=== PATIENT | male | born 1960 | race Caucasian/White ===

== ENCOUNTER 2017-04-05 16:02 | Emergency (ER) | payer SELFPAY ==
[2017-04-05] MEDS ORDERED: Ketorolac Tromethamine 30 MG/ML VIAL ONE ×2 (17:18)
--- NOTE | 2017-04-05 17:22 | RAD ---
EXAM: LEFT ANKLE THREE VIEWS 04/05/17 HISTORY: Injury. Pain. FINDINGS: No fracture. No cortical irregularity or periosteal reaction. Remote medial malleolus avulsive fract ure is suspected. There is medial and lateral soft tissue swelling. Joint spaces appear to be preser ivory. IMPRESSION: Soft tissue swelling without evidence of acute fracture. POS: [facility]
== END 2017-04-05 17:48 | disposition home or self-care (01) ==
LOC: ERS 16:02
DX: S93.402A Sprain of unspecified ligament of left ankle, initial encounter (principal); I10 Essential (primary) hypertension; X50.1XXA Overexertion from prolonged static or awkward postures, initial encounter
CPT/HCPCS: 96372; J1885

== ENCOUNTER 2018-03-05 00:41 | Inpatient (IN) | payer SELFPAY ==
[2018-03-05 01:17] LABS: #Basophils 0.1 thou/uL (0.0-0.2); #Eosinphils 0.1 thou/uL (0.0-0.7); #Lymphocytes 3.3 thou/uL (1.20-3.40); #Monocytes 0.7 thou/uL (0.11-0.59); #Neutrophils 4.3 thou/uL (1.40-6.50); %Basophils 0.9 % (0.0-1.0); %Eosinophils 1.3 % (0.0-10.0); %Lymphocytes 39.1 % (21.0-51.0); %Monocytes 8.3 % (0.0-10.0); %Neutrophils 50.5 % (42.0-75.0); Hemoglobin 19.3 g/dL (14.0-18.0); Mean Corpuscular Hemoglobin 31.6 pg (27.0-31.0); Mean Platelet Volume 7.4 fL (7.4-10.4); Platelet Count 158 thou/uL (130-400); RBC Distribution Width 14.5 % (11.5-14.5); White Blood Cell (WBC) Count 8.4 thou/uL (4.8-10.8)
[2018-03-05 01:35] LABS: ALT (SGPT) 72 U/L (8-55); AST (SGOT) 62 U/L (5-34); Albumin 4.1 g/dL (3.5-5.0); Alkaline Phosphatase 93 U/L (40-150); Anion Gap 18 mmol/L (10-20); BUN (Urea Nitrogen) 7 mg/dL (8.4-25.7); Bilirubin, Total 0.4 mg/dL (0.2-1.2); CK (CPK) 80 U/L (30-200); Calc. Creatinine Clearance 0 mL/min (70-130); Calcium 9.5 mg/dL (7.8-10.44); Carbon Dioxide 23 mmol/L (22-29); Chloride 102 mmol/L (98-107); Estimated GFR-MDRD 81; Globulin 3.7 g/dL (2.4-3.5); Glucose 120 mg/dL (70-105); Lipase 57 U/L (8-78); Protein, Total 7.8 g/dL (6.0-8.3); Sodium 139 mmol/L (136-145)
[2018-03-05 01:37] LABS: Troponin I 0.148 ng/mL (< 0.028)
[2018-03-05] MEDS ORDERED: Nitroglycerin 2% Ointment 1 INCH/1 GM Packet ONE (01:55)
[2018-03-05] MEDS ORDERED: Morphine 4 MG/ML VIAL ONE (01:55)
[2018-03-05] MEDS ORDERED: Heparin 25,000 units/D5W 500 ML ONE (02:06)
[2018-03-05] MEDS ORDERED: Heparin 1,000 UNITS/ML VIAL ONE ×2 (02:06→02:30)
[2018-03-05] MEDS ORDERED: Nitroglycerin 50 MG/250 ML BOT 250 ML ONE (02:06)
[2018-03-05] MEDS ORDERED: Labetalol HCl 100 MG/20 ML VIAL ONE (02:06)
[2018-03-05] MEDS ORDERED: Ondansetron HCl/PF 4 MG/2 ML Vial ONE (02:13)
[2018-03-05 02:18] LABS: INR-International Normal Ratio 1.1; PTT 30.1 SEC (22.9-36.1); Prothrombin Time 13.8 SEC (12.0-14.7)
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
[2018-03-05] MEDS ORDERED: Labetalol HCl 100 MG/20 ML VIAL SLOW IVP PRN (03:37)
[2018-03-05 03:40] VITALS: BMI 34.9
[2018-03-05] MEDS ORDERED: Ondansetron ODT 4 MG TAB PO PRN (04:23)
[2018-03-05] MEDS ORDERED: Nitroglycerin 50 MG/250 ML BOT 250 ML IVPB SCH (04:23)
[2018-03-05] MEDS ORDERED: Lactated Ringer's 1,000 ML IV SCH (04:30)
[2018-03-05] MEDS: Heparin 25,000 units/D5W 500 ML IVPB SCH (05:01)
[2018-03-05 05:24] LABS: Hemoglobin 17.7 g/dL (14.0-18.0); Platelet Count 144 thou/uL (130-400)
[2018-03-05 05:44] LABS: Cardiac Risk 7.5 (Less than 4.5)
[2018-03-05 05:59] LABS: Troponin I 0.694 ng/mL (< 0.028)
--- NOTE | 2018-03-05 06:09 | PDOC.EVN ---
Event Note - Event Note Event Note: Residents notified at 0545 of pt having worsening chest pain despite administration of IV morphine. Pain had resolved to 0/10 prior to transfer to unit. Pt currently rating pain at 6/10 with radiation to jaw. Repeat EKG showed no acute changes. Troponins trending up: 0.148-> 0.694. Notified Dr Alston. Plan for patient to go to medical lab technologist early this AM.
--- NOTE | 2018-03-05 06:35 | PDOC.FM ---
- Subjective Subjective: Patient reports that his chest pain improved initially after the nitro, but about an hour ago got much worse again. It feels like a pressure, substernal pain. He has pain with breathing, but denies SOB. Denies N/V, abdominal pain. - Objective MAR Reviewed: Yes Vital Signs & Weight: Vital Signs (12 hours) Temp 03/05/18 04:00 97.9 F Weight Admit Weight 92 kg Weight 92.2 kg Most Recent Monitor Data Heart Rate from ECG 78 NIBP 159/113 NIBP BP-Mean 121 Respiration from ECG 14 SpO2 95 I&O: 03/03/18 03/04/18 03/05/18 06:59 06:59 06:59 Output Total 400 Balance -400 Result Diagrams: 03/05/18 05:09 03/05/18 01:00 <Unique Echavarria - Last Filed: 03/05/18 06:56> - Objective Vital Signs & Weight: Vital Signs (12 hours) Temp Pulse Resp Pulse Ox 03/05/18 07:31 98.5 F 71 13 94 L 03/05/18 07:00 98.5 F 03/05/18 04:00 97.9 F 03/05/18 03:30 97.9 F 108 H 22 H 95 Weight Admit Weight 92 kg Weight 92.2 kg Most Recent Monitor Data Heart Rate from ECG 76 NIBP 170/86 NIBP BP-Mean 132 Respiration from ECG 14 SpO2 95 I&O: 03/04/18 03/05/18 03/06/18 06:59 06:59 06:59 Intake Total 188.5 Output Total 400 Balance -211.5 Result Diagrams: 03/05/18 05:09 03/05/18 08:19 <Lynsey Gautam - Last Filed: 03/05/18 11:14> Phys Exam - Physical Examination Constitutional: NAD HEENT: moist MMs, sclera anicteric Respiratory: no wheezing, no rales, no rhonchi, clear to auscultation bilateral Cardiovascular: RRR, no significant murmur, no rub Gastrointestinal: soft, non-tender, no distention, positive bowel sounds Musculoskeletal: no edema, pulses present Neurological: non-focal, moves all 4 limbs Psychiatric: normal affect, A&O x 3 Skin: normal turgor, cap refill <2 seconds <Unique Echavarria - Last Filed: 03/05/18 06:56> Dx/Plan (1) NSTEMI (non-ST elevated myocardial infarction) Code(s): I21.4 - NON-ST ELEVATION (NSTEMI) MYOCARDIAL INFARCTION Status: Acute (2) Hypertensive emergency Code(s): I16.1 - HYPERTENSIVE EMERGENCY Status: Acute (3) Polycythemia Code(s): D75.1 - SECONDARY POLYCYTHEMIA Status: Acute (4) GERD (gastroesophageal reflux disease) Code(s): K21.9 - GASTRO-ESOPHAGEAL REFLUX DISEASE WITHOUT ESOPHAGITIS Status: Acute Qualifiers: Esophagitis presence: esophagitis presence not specified Qualified Code(s) : K21.9 - Gastro-esophageal reflux disease without esophagitis (5) HTN (hypertension) Code(s): I10 - ESSENTIAL (PRIMARY) HYPERTENSION Status: Chronic Qualifiers: Hypertension type: essential hypertension Qualified Code(s): I10 - Essential (primary) hypertension (6) Tobacco abuse Code(s): Z72.0 - TOBACCO USE Status: Chronic (7) Marijuana abuse Code(s): F12.10 - CANNABIS ABUSE, UNCOMPLICATED Status: Acute - Plan Plan: NSTEMI Substernal chest pressure radiating to left jaw and diaphoresis relieved with nitro initially. Extensive FH of NM and heart disease. Heart score 8. Initial EKG showed ST depression in lateral leads. s/p labetalol and morphine in ED. Had taken BC powder at home. Troponin 0.148-> 0.694 - Dr. Alston with cardiology on board, plans to take patient to cath now with the new elevation of troponin and worsening chest pain - Continue heparin drip until cath - Continue nitro drip until cath - Continue Morphine PRN - LR @ 125 - Mechanical Engineering Lecturer on smoking cessation - EKG if chest pain returns Hypertensive Emergency Initial BP 226/139, has improved on nitro drip. Currently around 160s/110s. - Continue Nitro drip - Continue to monitor pressures Polycythemia Hgb 19.3->17.7 - EPO and JAK2 - Continue to monitor GERD - IV protonix Marijuana and tobacco abuse - Mechanical Engineering Lecturer on cessation <Unique Echavarria - Last Filed: 03/05/18 06:56> Attending Addendum - Attending Addendum Date/Time: 03/05/18 1111 I personally evaluated the patient and discussed the management with Dr. Echavarria I agree with the History, Examination, Assessment and Plan documented above with any addition or exceptions noted below- Patient returned from cath. Still having some chest pain. Afebrile VSS A/P: 1) NSTEMI- continue nitrates, ASA, statin, morphine. s/p cath- plan for medical management as per cardiology, 2) HTN emergency- continue to titrate BP meds. <Lynsey Gautam - Last Filed: 03/05/18 11:14>
[2018-03-05 07:25] LABS: Magnesium 1.8 mg/dL (1.6-2.6); Phosphorus 3.4 mg/dL (2.3-4.7)
[2018-03-05] MEDS ORDERED: Aspirin 325 MG TAB PO SCH (08:00)
[2018-03-05] MEDS ORDERED: Lidocaine 1% (PF) 30 ML VIAL ONE (08:18)
[2018-03-05] MEDS: Pantoprazole 40 MG VIAL IVP SCH (08:19)
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
[2018-03-05] MEDS ORDERED: Fentanyl 100 MCG/2 ML VIAL ONE (08:48)
[2018-03-05] MEDS ORDERED: Midazolam HCl 2 mg/2 ml Vial ONE (08:48)
[2018-03-05 08:58] LABS: Troponin I 2.929 ng/mL (< 0.028)
[2018-03-05] MEDS ORDERED: hydrALAZINE 20 MG/ML VIAL ONE (08:59)
[2018-03-05 09:00] LABS: Anion Gap 11 mmol/L (10-20); BUN (Urea Nitrogen) 7 mg/dL (8.4-25.7); Calc. Creatinine Clearance 128 mL/min (70-130); Calcium 8.8 mg/dL (7.8-10.44); Carbon Dioxide 22 mmol/L (22-29); Chloride 106 mmol/L (98-107); Estimated GFR-MDRD Greater than 90; Glucose 130 mg/dL (70-105); Potassium 3.6 mmol/L (3.5-5.1); Sodium 135 mmol/L (136-145)
[2018-03-05] MEDS ORDERED: Enoxaparin Sodium 40 MG/0.4 ML SYRINGE SC SCH (09:00)
[2018-03-05] MEDS ORDERED: Heparin 10,000 UNITS/1 ML VIAL ONE (09:18)
[2018-03-05] MEDS ORDERED: Clopidogrel Bisulfate 300 MG TAB PO SCH (09:45)
[2018-03-05] MEDS ORDERED: Sodium Chloride 0.9% 1,000 ML IV SCH (09:45)
--- NOTE | 2018-03-05 11:02 | RAD ---
CHEST ONE VIEW: History: Chest pain. Comparison: Chest radiograph 2013. FINDINGS: Lungs are free of focal airspace consolidation, pneumothorax, or effusion. Cardiac silhouette and med iastinal contours are within normal limits. No acute osseous abnormality. IMPRESSION: No acute intrathoracic abnormality. POS: [facility]
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
[2018-03-05 12:43] LABS: CKMB 114.2 ng/mL (0-6.6)
[2018-03-05] MEDS ORDERED: Iopamidol 370 76% 100 ML VIAL ONE (13:23)
[2018-03-05] MEDS: Heparin 10,000 UNITS/ 10 ML VIAL SLOW IVP SCH ×2 (14:03→21:50)
[2018-03-05 16:17] LABS: CKMB 107.4 ng/mL (0-6.6); Critical Call CKMBM RESULT DECREASING
--- NOTE | 2018-03-05 17:08 | EKG ---
Test Reason : Blood Pressure : / mmHG Vent. Rate : 080 BPM Atrial Rate : 080 BPM P-R Int : 168 ms QRS Dur : 086 ms QT Int : 420 ms P-R-T Axes : 032 007 053 degrees QTc Int : 484 ms Normal sinus rhythm Prolonged QT Abnormal ECG Confirmed by KIKE TORRES ([id number]) on 03/05/2018 5:07:52 PM Referred By: Confirmed By:KIKE TORRES
--- NOTE | 2018-03-05 17:10 | EKG ---
Test Reason : POST CATH Blood Pressure : / mmHG Vent. Rate : 082 BPM Atrial Rate : 082 BPM P-R Int : 158 ms QRS Dur : 084 ms QT Int : 424 ms P-R-T Axes : 059 024 054 degrees QTc Int : 495 ms Normal sinus rhythm Nonspecific T wave abnormality Prolonged QT Abnormal ECG Confirmed by KIKE TORRES ([id number]) on 03/05/2018 5:10:37 PM Referred By: HERNAN Confirmed By:KIKE TORRES
[2018-03-05] MEDS ORDERED: Carvedilol 6.25 MG TAB PO SCH (19:30)
[2018-03-05] MEDS ORDERED: Lisinopril 10 MG TAB PO SCH (19:30)
[2018-03-05] MEDS: Atorvastatin Calcium 40 MG TAB PO SCH (20:20)
[2018-03-05] MEDS ORDERED: Carvedilol 3.125 MG TAB PO SCH (21:00)
[2018-03-06 03:54] LABS: #Eosinphils 0.1 thou/uL (0.0-0.7); #Lymphocytes 2.3 thou/uL (1.20-3.40); #Monocytes 0.7 thou/uL (0.11-0.59); #Neutrophils 6.3 thou/uL (1.40-6.50); %Basophils 0.5 % (0.0-1.0); %Eosinophils 1.2 % (0.0-10.0); %Monocytes 7.6 % (0.0-10.0); %Neutrophils 66.6 % (42.0-75.0); Hemoglobin 16.1 g/dL (14.0-18.0); Mean Corpuscular HGB CONC 35.8 g/dL (32.0-36.0); Mean Corpuscular Hemoglobin 33.4 pg (27.0-31.0); Mean Corpuscular Volume 93.4 fL (78.0-98.0); Mean Platelet Volume 7.6 fL (7.4-10.4); Platelet Count 132 thou/uL (130-400); RBC Distribution Width 14.4 % (11.5-14.5); Red Blood Cell (RBC) Count 4.82 mill/uL (4.70-6.10); White Blood Cell (WBC) Count 9.4 thou/uL (4.8-10.8)
[2018-03-06 04:08] LABS: ALT (SGPT) 53 U/L (8-55); AST (SGOT) 93 U/L (5-34); Albumin 3.2 g/dL (3.5-5.0); Alkaline Phosphatase 65 U/L (40-150); Anion Gap 12 mmol/L (10-20); BUN (Urea Nitrogen) 4 mg/dL (8.4-25.7); Bilirubin, Total 1.1 mg/dL (0.2-1.2); Calc. Creatinine Clearance 149 mL/min (70-130); Calcium 8.5 mg/dL (7.8-10.44); Carbon Dioxide 22 mmol/L (22-29); Chloride 107 mmol/L (98-107); Estimated GFR-MDRD Greater than 90; Glucose 115 mg/dL (70-105); Potassium 3.6 mmol/L (3.5-5.1); Protein, Total 6.2 g/dL (6.0-8.3); Sodium 137 mmol/L (136-145)
[2018-03-06] MEDS: Heparin 10,000 UNITS/ 10 ML VIAL SLOW IVP SCH (04:58)
--- NOTE | 2018-03-06 06:24 | PDOC.FM ---
- Subjective Subjective: Patient reports that he had some chest pain overnight, but got morphine and that seemed to help some. His chest pain is much improved this AM. He denies any N/V, SOB. - Objective MAR Reviewed: Yes Vital Signs & Weight: Vital Signs (12 hours) Temp Pulse Resp BP Pulse Ox 03/05/18 20:20 160/99 H 03/05/18 20:19 160/99 H 03/05/18 20:00 98.5 F 82 21 H 93 L Weight Admit Weight 92 kg Weight 92.2 kg Most Recent Monitor Data Heart Rate from ECG 101 NIBP 145/105 NIBP BP-Mean 114 Respiration from ECG 12 SpO2 94 I&O: 03/04/18 03/05/18 03/06/18 06:59 06:59 06:59 Intake Total 188.5 2817 Output Total 400 1025 Balance -211.5 1792 Result Diagrams: 03/06/18 03:39 03/06/18 03:39 <nUique Echavarria - Last Filed: 03/06/18 06:23> - Objective Vital Signs & Weight: Vital Signs (12 hours) Temp Pulse Resp BP Pulse Ox 03/06/18 08:42 93 03/06/18 08:40 155/102 H 03/06/18 08:00 98.7 F 93 17 93 L Weight Admit Weight 92 kg Weight 92.2 kg Most Recent Monitor Data Heart Rate from ECG 96 NIBP 155/102 NIBP BP-Mean 122 Respiration from ECG 24 SpO2 93 I&O: 03/05/18 03/06/18 03/07/18 06:59 06:59 06:59 Intake Total 188.5 2817 Output Total 400 1025 200 Balance -211.5 1792 -200 Result Diagrams: 03/06/18 03:39 03/06/18 03:39 <Lynsey Gautam - Last Filed: 03/06/18 10:42> Phys Exam - Physical Examination Constitutional: NAD HEENT: moist MMs, sclera anicteric Respiratory: no wheezing, no rales, no rhonchi, clear to auscultation bilateral Cardiovascular: RRR, no significant murmur, no rub Gastrointestinal: soft, non-tender, no distention, positive bowel sounds Musculoskeletal: no edema, pulses present Neurological: non-focal, moves all 4 limbs Psychiatric: normal affect, A&O x 3 Skin: normal turgor, cap refill <2 seconds <Unique Echavarria - Last Filed: 03/06/18 06:23> Dx/Plan (1) NSTEMI (non-ST elevated myocardial infarction) Code(s): I21.4 - NON-ST ELEVATION (NSTEMI) MYOCARDIAL INFARCTION Status: Acute (2) Hypertensive emergency Code(s): I16.1 - HYPERTENSIVE EMERGENCY Status: Acute (3) Polycythemia Code(s): D75.1 - SECONDARY POLYCYTHEMIA Status: Acute (4) GERD (gastroesophageal reflux disease) Code(s): K21.9 - GASTRO-ESOPHAGEAL REFLUX DISEASE WITHOUT ESOPHAGITIS Status: Acute (5) HTN (hypertension) Code(s): I10 - ESSENTIAL (PRIMARY) HYPERTENSION Status: Chronic (6) Tobacco abuse Code(s): Z72.0 - TOBACCO USE Status: Chronic (7) Marijuana abuse Code(s): F12.10 - CANNABIS ABUSE, UNCOMPLICATED Status: Acute - Plan Plan: NSTEMI 2/2 CAD Substernal chest pressure radiating to left jaw and diaphoresis relieved with nitro initially. Extensive FH of MN and heart disease. Heart score 8. Initial EKG showed ST depression in lateral leads. s/p labetalol and morphine in ED. Had taken BC powder at home. Troponin 0.148-> 0.694->2.929. Cardiac cath showed 90% lesion in LCx, 60% LAD, no stents placed. - Dr. Alston with cardiology on board, appreciate recs - Continue heparin drip until 48 hours after cath - Nitro gtt has been d/c'd - Continue Morphine PRN - Adult Education Instructor on smoking cessation - EKG if chest pain returns - Plavix, aspirin, atorvastatin, coreg, lisinopril started yesterday Hypertensive Emergency Initial BP 226/139, improved on nitro drip. Currently around 140s-170s/90s- 100s. - Continue lisinopril, coreg - Continue to monitor pressures Polycythemia Hgb 19.3->17.7->16.1 after fluids - EPO and JAK2 - Continue to monitor GERD - IV protonix Marijuana, tobacco, EtOH abuse - Adult Education Instructor on cessation - ASE protocol <Unique Echavarria - Last Filed: 03/06/18 06:23> Attending Addendum - Attending Addendum Date/Time: 03/06/18 1040 I personally evaluated the patient and discussed the management with Dr. Echavarria I agree with the History, Examination, Assessment and Plan documented above with any addition or exceptions noted below- Patient reports that no chest pain since last night. Walked in halls with PT with no pain. Afebrile VSS. A/P: 1) NSTEMI - appreciate cardiology assistance; continue heparin. Started on beta juan j, Jonah, statin and plavix. 2) Hypertensive emergency- resolved. BP much improved. Continue to monitor and adjust meds as needed. <Lynsey Gautam - Last Filed: 03/06/18 10:42>
[2018-03-06] MEDS ORDERED: Lidocaine 2% Viscous Solution 10 ML, Aluminum & Magnesium Hydroxide 30 ML SSW SCH (06:45)
--- NOTE | 2018-03-06 08:33 | PRG ---
DATE OF SERVICE: 03/06/2018 This morning he is awake, alert and responsive. PHYSICAL EXAMINATION: VITAL SIGNS: His pulse is 85, blood pressure 150/82, sats 90%, respirations 18. GENERAL: In no distress. CHEST: Chest reveals decreased breath sounds, no wheezing. CARDIAC: Normal S1, S2, no gallops. ABDOMEN: Soft, no masses. His electrolytes are normal. White count is unremarkable. IMPRESSION: 1. Status post myocardial infarction. 2. Tobacco abuse. 3. Probably sleep apnea. PLAN: Pulmonary lopez stable enough to be transferred to the telemetry unit. He would benefit from a n outpatient sleep study.
[2018-03-06] MEDS: Carvedilol 6.25 MG TAB PO SCH ×2 (08:40→17:29)
[2018-03-06] MEDS: Clopidogrel Bisulfate 75 MG TAB PO SCH (08:42)
[2018-03-06] MEDS: Lisinopril 2.5 MG TAB PO SCH (08:42)
[2018-03-06] MEDS: Pantoprazole 40 MG VIAL IVP SCH (08:42)
[2018-03-06] MEDS: Heparin 25,000 units/D5W 500 ML IVPB SCH (08:51)
--- NOTE | 2018-03-06 12:17 | EKG ---
Test Reason : Blood Pressure : / mmHG Vent. Rate : 089 BPM Atrial Rate : 089 BPM P-R Int : 166 ms QRS Dur : 080 ms QT Int : 392 ms P-R-T Axes : 042 027 035 degrees QTc Int : 476 ms Normal sinus rhythm Normal ECG Confirmed by KIKE TORRES ([id number]) on 03/06/2018 12:16:45 PM Referred By: HERNAN Confirmed By:KIKE TORRES
--- NOTE | 2018-03-06 19:59 | PDOC.CTH ---
Cardiology Progress Note - Subjective He is doing well. No more chest pain or reflux. His BP is better controlled. - Objective Vital Signs Temp Pulse Pulse Pulse Resp BP BP 03/06/18 17:29 136/82 03/06/18 15:35 98.1 F 90 18 03/06/18 12:00 98.9 F 03/06/18 09:37 85 03/06/18 08:54 89 93 154/99 H 03/06/18 08:42 93 03/06/18 08:40 155/102 H 03/06/18 08:00 98.7 F 93 17 BP Pulse Ox Pulse Ox Pulse Ox 03/06/18 17:29 03/06/18 15:35 95 03/06/18 12:00 03/06/18 09:37 03/06/18 08:54 112/84 95 92 L 03/06/18 08:42 03/06/18 08:40 03/06/18 08:00 93 L Admit Weight 202 lb 13.204 oz Weight 203 lb 4.259 oz 03/05/18 03/06/18 03/07/18 06:59 06:59 06:59 Intake Total 188.5 2817 749 Output Total 400 1025 700 Balance -211.5 1792 49 - Physical Examination General/Neuro: alert & oriented x3, NAD Neck: no JVD present Lungs: CTA, unlabored respirations Heart: RRR Abdomen: NT/ND Extremities: other: (no edema) - Telemetry Telemetry Rhythm: NSR - Labs Result Diagrams: 03/06/18 03:39 03/06/18 03:39 Troponin/CKMB CK-MB (CK-2) 107.4 ng/mL (0-6.6) H* 03/05/18 15:37 Troponin I 2.929 ng/mL (< 0.028) H* 03/05/18 08:19 - Assessment/Plan 1. NSTEMI 2. HTN emergency 3. Non compliance 4. CAD 5. HLP 6. Tobacco use PLAN: - Continue Heparin drip for total of 48 hrs., - Continue ASA/Plavix/Statin/BB/ACEI. - May transfer to floor.
[2018-03-06] MEDS: Atorvastatin Calcium 40 MG TAB PO SCH (20:33)
[2018-03-07] MEDS: Heparin 25,000 units/D5W 500 ML IVPB SCH (01:55)
[2018-03-07 06:03] LABS: Platelet Count 129 thou/uL (130-400)
[2018-03-07 06:04] LABS: #Eosinphils 0.1 thou/uL (0.0-0.7); #Lymphocytes 2.7 thou/uL (1.20-3.40); #Monocytes 0.8 thou/uL (0.11-0.59); #Neutrophils 4.8 thou/uL (1.40-6.50); %Basophils 0.3 % (0.0-1.0); %Eosinophils 1.3 % (0.0-10.0); %Lymphocytes 32.5 % (21.0-51.0); %Monocytes 9.4 % (0.0-10.0); %Neutrophils 56.4 % (42.0-75.0); Hemoglobin 14.8 g/dL (14.0-18.0); Mean Corpuscular HGB CONC 33.9 g/dL (32.0-36.0); Mean Corpuscular Hemoglobin 32.3 pg (27.0-31.0); Mean Corpuscular Volume 95.2 fL (78.0-98.0); Mean Platelet Volume 8.2 fL (7.4-10.4); Platelet Count 125 thou/uL (130-400); RBC Distribution Width 14.2 % (11.5-14.5); White Blood Cell (WBC) Count 8.4 thou/uL (4.8-10.8)
--- NOTE | 2018-03-07 06:06 | PDOC.FM ---
- Subjective Subjective: This morning patient states he has no chest pain. He states maybe mild tingling substernal but no pain. Has been ambulating without any difficulty. Eating and drinking without issues. Denies sob or leg pain. - Objective Vital Signs & Weight: Vital Signs (12 hours) Temp Pulse Resp BP Pulse Ox 03/07/18 03:13 99.1 F 83 14 140/85 92 L 03/06/18 19:27 98.1 F 88 12 126/74 94 L Weight Admit Weight 92 kg Weight 90.22 kg Most Recent Monitor Data Heart Rate from ECG 92 NIBP 126/87 NIBP BP-Mean 109 Respiration from ECG 22 SpO2 91 I&O: 03/05/18 03/06/18 03/07/18 06:59 06:59 06:59 Intake Total 188.5 2817 1259 Output Total 400 1025 1250 Balance -211.5 1792 9 Result Diagrams: 03/07/18 04:22 03/07/18 04:22 <Scooby Sam - Last Filed: 03/07/18 07:53> - Objective Vital Signs & Weight: Vital Signs (12 hours) Temp Pulse Resp BP BP Pulse Ox 03/07/18 17:45 151/71 H 03/07/18 16:50 99.0 F 91 16 151/71 H 95 03/07/18 11:30 96.9 F L 81 18 154/81 H 95 Weight Admit Weight 92 kg Weight 90.22 kg Most Recent Monitor Data Heart Rate from ECG 92 NIBP 126/87 NIBP BP-Mean 109 Respiration from ECG 22 SpO2 91 I&O: 03/06/18 03/07/18 03/08/18 06:59 06:59 06:59 Intake Total 2817 1259 Output Total 1025 1250 Balance 1792 9 Result Diagrams: 03/07/18 07:20 03/07/18 04:22 <Rachael Mujica - Last Filed: 03/07/18 20:52> Phys Exam - Physical Examination Constitutional: NAD HEENT: PERRLA, moist MMs Neck: no nodes Respiratory: no wheezing, clear to auscultation bilateral Cardiovascular: RRR, no significant murmur Gastrointestinal: soft, non-tender, no distention, positive bowel sounds Musculoskeletal: no edema, pulses present Neurological: non-focal, moves all 4 limbs Skin: no rash, cap refill <2 seconds <Scooby Sam - Last Filed: 03/07/18 07:53> Dx/Plan (1) Hypertensive urgency Code(s): I16.0 - HYPERTENSIVE URGENCY Status: Acute (2) NSTEMI (non-ST elevated myocardial infarction) Code(s): I21.4 - NON-ST ELEVATION (NSTEMI) MYOCARDIAL INFARCTION Status: Acute (3) Polycythemia Code(s): D75.1 - SECONDARY POLYCYTHEMIA Status: Acute (4) Unstable angina Status: Acute (5) HTN (hypertension) Code(s): I10 - ESSENTIAL (PRIMARY) HYPERTENSION Status: Chronic Qualifiers: Hypertension type: essential hypertension Qualified Code(s): I10 - Essential (primary) hypertension - Plan Plan: NSTEMI 2/2 CAD Substernal chest pressure radiating to left jaw and diaphoresis relieved with nitro initially. Extensive FH of [place] and heart disease. Heart score 8. Initial EKG showed ST depression in lateral leads. s/p labetalol and morphine in ED. Had taken BC powder at home. . Cardiac cath showed 90% lesion in LCx, 60% LAD, no stents placed. - Troponin 0.148-> 0.694->2.929-> 14 - Cardiology consulted, appreciate recs - Heparin d/c'd after 48hours bc started on 03/05 at 0400 per MAR - Heparin restarted after speaking with Dr. Alston regarding trop this AM - Nitro gtt has been d/c'd - Continue Morphine PRN - Tube Inspector on smoking cessation - EKG if chest pain returns - Plavix, aspirin, atorvastatin, coreg, lisinopril started yesterday Hypertensive Emergency Initial BP 226/139, improved on nitro drip. WNL overnight - Continue lisinopril, coreg - Continue to monitor pressures Polycythemia Hgb 19.3->17.7->16.1-> 15 - EPO and JAK2 - Continue to monitor GERD - IV protonix Marijuana, tobacco, EtOH abuse - Tube Inspector on cessation - ASE protocol <Scooby Sam - Last Filed: 03/07/18 07:53> Attending Addendum - Attending Addendum Date/Time: 03/07/182049 I personally evaluated the patient at 1135 and discussed the management with Dr. Sam. I agree with the History, Examination, Assessment and Plan documented above with any addition or exceptions noted below. NSTEMI- s/p cath and non-stentable lesion. On heparin gtt- appreciate cards recs. R groin hematoma- patient began complaining of groin pain and bruising this am. Will discuss with cards for further eval. HTN- bp stable. discharge planning per cardiology. <Rachael Mujica - Last Filed: 03/07/18 20:52>
[2018-03-07 06:18] LABS: Anion Gap 11 mmol/L (10-20); BUN (Urea Nitrogen) 7 mg/dL (8.4-25.7); Calc. Creatinine Clearance 144 mL/min (70-130); Calcium 8.7 mg/dL (7.8-10.44); Carbon Dioxide 22 mmol/L (22-29); Chloride 106 mmol/L (98-107); Estimated GFR-MDRD Greater than 90; Glucose 89 mg/dL (70-105); Potassium 3.5 mmol/L (3.5-5.1); Sodium 135 mmol/L (136-145)
[2018-03-07 06:51] LABS: Troponin I 14.924 ng/mL (< 0.028)
[2018-03-07] MEDS ORDERED: Heparin 25,000 units/D5W 500 ML IVPB SCH (07:15)
[2018-03-07] MEDS ORDERED: Heparin 10,000 UNITS/ 10 ML VIAL SLOW IVP SCH (07:15)
[2018-03-07 07:57] LABS: Hemoglobin 15.5 g/dL (14.0-18.0); Platelet Count 140 thou/uL (130-400)
[2018-03-07] MEDS: Lisinopril 2.5 MG TAB PO SCH (08:23)
[2018-03-07] MEDS: Pantoprazole 40 MG VIAL IVP SCH (08:23)
[2018-03-07] MEDS: Carvedilol 6.25 MG TAB PO SCH ×2 (08:24→17:45)
[2018-03-07] MEDS: Clopidogrel Bisulfate 75 MG TAB PO SCH (08:24)
--- NOTE | 2018-03-07 16:10 | ULT ---
ULTRASOUND DOPPLER DUPLEX RIGHT GROIN: 03/07/18 HISTORY: 57-year-old male status post cardiac catheterization presents with right groin mass and pain. Rule ou t pseudoaneurysm. TECHNIQUE: Rodriguez scale, color flow and spectral analysis, of the right groin. FINDINGS: There is an approximately 2.5 x 2 x 3 cm hematoma in the right groin, anterior to the right common fe moral artery. A small proximal portion of this hematoma cavity has pulsatile blood flow, indicating t hat it is a pseudoaneurysm, although the neck of the pseudoaneurysm is difficult to visualize. There is normal arterial pulsatile waveform in the right common femoral artery. IMPRESSION: Positive for pseudoaneurysm in the right groin. The majority of the volume of the pseudoaneurysm is t hrombosed (hematoma), but there is a small patent component. POS: LAURITA
--- NOTE | 2018-03-07 17:43 | ULT ---
ULTRASOUND RIGHT GROIN DOPPLER DUPLEX: 03/07/18 at 5:27 p.m. HISTORY: 57-year-old male with right groin pseudoaneurysm. Status post compression. TECHNIQUE: Rodriguez scale and color flow analysis of right pseudoaneurysm. FINDINGS: The first image, prior to application of compression, demonstrates the hematoma in the right groin, w ith a small region of blood flow representing small patent pseudoaneurysm. The next four images obtai carrie after compression, demonstrate no residual blood flow. IMPRESSION: Apparently successful occlusion of the pseudoaneurysm in the right groin. POS: [place]
--- NOTE | 2018-03-07 18:23 | PDOC.CTH ---
Cardiology Progress Note - Subjective He denies any chest pain, tightness, pressure, SOB or heartburn. His only complaint is right groin pain from his incision site. - Objective Vital Signs Temp Pulse Resp BP BP Pulse Ox 03/07/18 17:45 151/71 H 03/07/18 16:50 99.0 F 91 16 151/71 H 95 03/07/18 11:30 96.9 F L 81 18 154/81 H 95 03/07/18 08:24 165/95 H 03/07/18 08:23 83 03/07/18 08:20 98.3 F 84 16 165/95 H 95 Admit Weight 202 lb 13.204 oz Weight 198 lb 14.4 oz 03/06/18 03/07/18 03/08/18 06:59 06:59 06:59 Intake Total 2817 1259 Output Total 1025 1250 Balance 1792 9 - Physical Examination General/Neuro: alert & oriented x3, NAD Neck: no JVD present Lungs: CTA, unlabored respirations Heart: RRR Abdomen: NT/ND Extremities: other: (no edema. Roght groin with soft bruit and small palpable pulsatile mass.) - Telemetry Telemetry Rhythm: NSR - Labs Result Diagrams: 03/07/18 07:20 03/07/18 04:22 Troponin/CKMB CK-MB (CK-2) 107.4 ng/mL (0-6.6) H* 03/05/18 15:37 Troponin I 14.924 ng/mL (< 0.028) H* 03/07/18 06:00 - Assessment/Plan 1. NSTEMI 2. HTN emergency 3. Non compliance 4. CAD 5. HLP 6. Tobacco use 7. Pseudoaneurysm. PLAN: - Continue ASA/Plavix/Statin/BB/ACEI. - US of the groin confirmed right groin pseudoaneurysm. Resolved with US guided pressure. - Continue other meds. - Home tomorrow if stable.
--- NOTE | 2018-03-07 19:58 | EKG ---
Test Reason : CP Blood Pressure : / mmHG Vent. Rate : 087 BPM Atrial Rate : 087 BPM P-R Int : 162 ms QRS Dur : 078 ms QT Int : 388 ms P-R-T Axes : 036 021 044 degrees QTc Int : 466 ms Normal sinus rhythm Nonspecific ST abnormality Abnormal ECG No changes Confirmed by KATHARINA SEVILLA ([id number]), news video editor JAKOB HALL ([id number]) on 03/07/2018 7:58:36 PM Referred By: Confirmed By:KATHARINA SEVILLA
--- NOTE | 2018-03-07 19:59 | EKG ---
Test Reason : Blood Pressure : / mmHG Vent. Rate : 081 BPM Atrial Rate : 081 BPM P-R Int : 166 ms QRS Dur : 086 ms QT Int : 414 ms P-R-T Axes : 017 012 032 degrees QTc Int : 480 ms Normal sinus rhythm Prolonged QT Abnormal ECG No changes Confirmed by KATHARINA SEVILLA ([id number]), metropolitan editor JAKOB HALL ([id number]) on 03/07/2018 7:59:00 PM Referred By: Confirmed By:KATHARINA SEVILLA
--- NOTE | 2018-03-07 19:59 | EKG ---
Test Reason : Blood Pressure : / mmHG Vent. Rate : 083 BPM Atrial Rate : 083 BPM P-R Int : 156 ms QRS Dur : 088 ms QT Int : 388 ms P-R-T Axes : 034 020 040 degrees QTc Int : 455 ms Normal sinus rhythm Nonspecific ST abnormality Peaked T V3 Abnormal ECG Confirmed by KATHARINA SEVILLA ([id number]), food editor JAKOB HALL ([id number]) on 03/07/2018 7:58:51 PM Referred By: Confirmed By:KATHARINA SEVILLA
[2018-03-07] MEDS: Atorvastatin Calcium 40 MG TAB PO SCH (21:05)
--- NOTE | 2018-03-07 22:44 | PRG ---
DATE OF SERVICE: 03/07/2018 SUBJECTIVE: Jeancarlos Avila is in no distress. He has no complaints. OBJECTIVE: VITAL SIGNS: He is afebrile, blood pressure 161/71, heart rate 16, oximetry is 95 on room air. LUNGS: Clear. He has no wheezes. HEART: Regular rhythm. ABDOMEN: Soft. LABORATORY DATA: He had an abdomen and pelvis ultrasound done today which showed a pseudoaneurysm in his right groin. He has been followed by Cardiology. Hemoglobin stable at 15.5 grams. His renal function is stable at 0.73 creatinine. IMPRESSION: 1. Status post myocardial infarction. 2. Pseudoaneurysm in his right groin. 3. Tobacco abuse. 4. Probable sleep apnea. PLAN: Continue care per Cardiology's recommendations.
[2018-03-08 05:18] LABS: #Basophils 0.1 thou/uL (0.0-0.2); #Eosinphils 0.1 thou/uL (0.0-0.7); #Lymphocytes 2.3 thou/uL (1.20-3.40); #Monocytes 0.7 thou/uL (0.11-0.59); #Neutrophils 4.8 thou/uL (1.40-6.50); %Basophils 0.7 % (0.0-1.0); %Eosinophils 1.8 % (0.0-10.0); %Monocytes 8.4 % (0.0-10.0); %Neutrophils 60.2 % (42.0-75.0); Hemoglobin 15.1 g/dL (14.0-18.0); Mean Corpuscular HGB CONC 33.4 g/dL (32.0-36.0); Mean Corpuscular Hemoglobin 31.4 pg (27.0-31.0); Mean Corpuscular Volume 94.2 fL (78.0-98.0); Mean Platelet Volume 7.9 fL (7.4-10.4); Platelet Count 144 thou/uL (130-400); RBC Distribution Width 14.1 % (11.5-14.5); White Blood Cell (WBC) Count 8.1 thou/uL (4.8-10.8)
[2018-03-08 05:34] LABS: Anion Gap 11 mmol/L (10-20); BUN (Urea Nitrogen) 10 mg/dL (8.4-25.7); Calc. Creatinine Clearance 150 mL/min (70-130); Calcium 8.6 mg/dL (7.8-10.44); Carbon Dioxide 22 mmol/L (22-29); Chloride 106 mmol/L (98-107); Estimated GFR-MDRD Greater than 90; Glucose 87 mg/dL (70-105); Potassium 3.7 mmol/L (3.5-5.1); Sodium 135 mmol/L (136-145)
--- NOTE | 2018-03-08 05:38 | PDOC.FM ---
- Subjective Subjective: Patient states he is feeling well and ready to go home. Knot in groin is soft and feels much better. Has been ambulating the hallway without pain to chest or groin. No N/V/D, SOB, or leg pain. - Objective MAR Reviewed: Yes Vital Signs & Weight: Vital Signs (12 hours) Temp Pulse Resp BP BP BP Pulse Ox 03/08/18 04:00 98.6 F 77 16 142/86 H 93 L 03/08/18 00:00 126/70 03/07/18 20:00 98.6 F 82 18 175/97 H 94 L 03/07/18 17:45 151/71 H Weight Admit Weight 92 kg Weight 90.22 kg Most Recent Monitor Data Heart Rate from ECG 92 NIBP 126/87 NIBP BP-Mean 109 Respiration from ECG 22 SpO2 91 I&O: 03/06/18 03/07/18 03/08/18 06:59 06:59 06:59 Intake Total 2817 1259 Output Total 1025 1250 Balance 1792 9 Result Diagrams: 03/08/18 04:31 03/08/18 04:31 <Scooby Sam - Last Filed: 03/08/18 07:12> - Objective Vital Signs & Weight: Vital Signs (12 hours) Temp Pulse Resp BP BP BP Pulse Ox 03/08/18 09:00 151/71 H 03/08/18 07:40 98.3 F 77 19 174/92 H 97 03/08/18 07:35 98.3 F 77 19 96 03/08/18 04:00 98.6 F 77 16 142/86 H 93 L 03/08/18 00:00 126/70 Weight Admit Weight 92 kg Weight 86.5 kg Most Recent Monitor Data Heart Rate from ECG 92 NIBP 126/87 NIBP BP-Mean 109 Respiration from ECG 22 SpO2 91 I&O: 03/07/18 03/08/18 03/09/18 06:59 06:59 06:59 Intake Total 1259 300 Output Total 1250 200 Balance 9 100 Result Diagrams: 03/08/18 04:31 03/08/18 04:31 <Rachael Mujica - Last Filed: 03/08/18 11:26> Phys Exam - Physical Examination Constitutional: NAD HEENT: PERRLA, moist MMs Neck: no nodes Respiratory: no wheezing Cardiovascular: RRR, no significant murmur Gastrointestinal: soft, non-tender, no distention, positive bowel sounds Musculoskeletal: no edema, pulses present bruising to rt groin, soft today, no induration Neurological: non-focal, moves all 4 limbs Psychiatric: normal affect Skin: no rash, cap refill <2 seconds <Scooby Sam - Last Filed: 03/08/18 07:12> Dx/Plan (1) Hypertensive urgency Code(s): I16.0 - HYPERTENSIVE URGENCY Status: Acute (2) NSTEMI (non-ST elevated myocardial infarction) Code(s): I21.4 - NON-ST ELEVATION (NSTEMI) MYOCARDIAL INFARCTION Status: Acute (3) Polycythemia Code(s): D75.1 - SECONDARY POLYCYTHEMIA Status: Acute (4) Unstable angina Status: Acute (5) HTN (hypertension) Code(s): I10 - ESSENTIAL (PRIMARY) HYPERTENSION Status: Chronic Qualifiers: Hypertension type: essential hypertension Qualified Code(s): I10 - Essential (primary) hypertension - Plan Plan: NSTEMI 2/2 CAD Substernal chest pressure radiating to left jaw and diaphoresis relieved with nitro initially. Extensive FH of [place] and heart disease. Heart score 8. Initial EKG showed ST depression in lateral leads. s/p labetalol and morphine in ED. Had taken BC powder at home. . Cardiac cath showed 90% lesion in LCx, 60% LAD, no stents placed. - Troponin 0.148-> 0.694->2.929-> 14 - Cardiology consulted, appreciate recs - s/p 72 hrs of heparin - Continue Morphine PRN - Counseled on smoking cessation - EKG if chest pain returns - Plavix, aspirin, atorvastatin, coreg, lisinopril started yesterday Hypertensive Emergency Initial BP 226/139. Mildly elevated to the 140s-160s systolic overnight - Continue lisinopril, coreg - Continue to monitor pressures Polycythemia Hgb 19.3->17.7->16.1-> 15 - EPO and JAK2 ordered on admission not resulted - will f/u on these results GERD - IV protonix Marijuana, tobacco, EtOH abuse - Donor Services Manager on cessation - [facility] protocol Dispo: d/c today w/ f/u at [facility] this week <Scooby Sam - Last Filed: 03/08/18 07:12> Attending Addendum - Attending Addendum Date/Time: 03/08/18 [id number] I personally evaluated the patient at 11 am and discussed the management with Dr. Sam. I agree with the History, Examination, Assessment and Plan documented above with any addition or exceptions noted below. NSTEMI- non-stentable lesion but CAD- medical management with asa/plavix/beta juan j/Jonah Inh/statin. Stable for d/c home. <Rachael Mujica - Last Filed: 03/08/18 11:26>
[2018-03-08 07:44] VITALS: TEMP 98.3
[2018-03-08] MEDS: Lisinopril 2.5 MG TAB PO SCH (08:59)
[2018-03-08] MEDS: Clopidogrel Bisulfate 75 MG TAB PO SCH (08:59)
[2018-03-08] MEDS: Carvedilol 6.25 MG TAB PO SCH (09:00)
[2018-03-08] MEDS: Pantoprazole 40 MG VIAL IVP SCH (09:41)
[2018-03-08 11:36] VITALS: BP 167/91
--- NOTE | 2018-03-08 15:00 | PRG ---
DATE OF SERVICE: 03/08/2018 He is having no complaints today. He was asking if his IV could be pulled out. It was actually almo st out, so I pulled it out, intact. OBJCTIVE: LUNGS: Clear. HEART: Regular rhythm. ABDOMEN: Soft. EXTREMITIES: Without clubbing, cyanosis, or edema. IMPRESSION: 1. Coronary artery disease. 2. Status post pseudoaneurysm. 3. Non-ST elevation myocardial infarction, clinically stable for discharge in my opinion.
--- NOTE | 2018-03-08 16:16 | DIS-2 ---
DATE OF ADMISSION: 03/05/2018 DATE OF DISCHARGE: 03/08/2018 RESIDENT: Dr. Scooby Sam. ADMITTING ATTENDING: Dr. Archie Chandra. DISCHARGE ATTENDING: Dr. Rachael Mujica. CONSULTATIONS: Cardiology, Dr. Alston. PROCEDURES: Cardiac catheterization shows 90% left circumflex blockage, 60% LAD blockage, 20% RCA blockage. PRIMARY DIAGNOSIS: Non-ST elevation myocardial infarction. SECONDARY DIAGNOSES: Hypertension, polycythemia, gastroesophageal reflux disease, tobacco abuse. DISCHARGE MEDICATIONS: Aspirin 81 mg, atorvastatin 40 mg, carvedilol 12.5 mg b.i.d., Plavix 75 mg daily, lisinopril 10 mg daily, Protonix 40 mg daily. DISCONTINUED MEDICATIONS: None. HISTORY OF PRESENT ILLNESS AND HOSPITAL COURSE: This is a 57-year-old male who came into the ER complaining of chest pain. He described it as a weight on his chest with radiation to the left jaw. Had been treated at home with omeprazole , but was not getting any better. Has extensive family history of cardiac disease. Has history of smoking. Has not taken any medications for several months. Cardiac catheterization was done which showed 90% left circumflex blockage as well as 60% LAD lesion blockage as well as 20% RCA lesion blockage. Decision was made to proceed with medical management. Patient received 72 hours of heparin drip IV. The patient's pain was totally resolved and he was able to walk up and down the hallway without any difficulty upon discharge. The patient developed a right pseudoaneurysm at the site of the femoral catheter insertion. This was resolved after guided ultrasound and pressure. The patient was found to have hemoglobin of 19.4 upon admission. EPO and Jak2 were ordered and are not resulted at the time of discharge. This will be followed up on. The patient's hemoglobin trended down to 15 on date of discharge. DISPOSITION: Stable. DISCHARGE INSTRUCTIONS: 1. Location: Home. 2. Diet: Regular. 3. Activity: As tolerated. 4. Follow up with Dr. Alston 2-3 weeks, Dr. Vaca in 3-4 weeks, Liv in 3 days. URSZULA
--- NOTE | 2018-03-09 11:19 | PDOC.EVN ---
Event Note - Event Note Event Note: check on EPO/Jak2 results still pending pts hgb was 19 on admit and 15 at d/c
[2018-03-10 15:21] LABS: Erythropoietin 5.8 mIU/mL (2.6-18.5)
== END 2018-03-08 13:29 | disposition home or self-care (01) | DRG 281 ==
LOC: ERS 00:41 → CCU 03:20 → 2NO 03-06 15:39
PROVIDERS: ADMIT Family Medicine; ATTEND Family Medicine
PROC: 4A023N7 Measurement of Cardiac Sampling and Pressure, Left Heart, Percutaneous Approach (ICD-10-PCS; principal; 2018-03-05)
PROC: B2111ZZ Fluoroscopy of Multiple Coronary Arteries using Low Osmolar Contrast (ICD-10-PCS; 2018-03-05)
PROC: B2151ZZ Fluoroscopy of Left Heart using Low Osmolar Contrast (ICD-10-PCS; 2018-03-05)
PROC: 4A033BC Measurement of Arterial Pressure, Coronary, Percutaneous Approach (ICD-10-PCS; 2018-03-05)
DX: I21.4 Non-ST elevation (NSTEMI) myocardial infarction (principal); I42.0 Dilated cardiomyopathy; I16.1 Hypertensive emergency; I97.89 Other postprocedural complications and disorders of the circulatory system, not elsewhere classified; I72.4 Aneurysm of artery of lower extremity; D75.1 Secondary polycythemia; K21.9 Gastro-esophageal reflux disease without esophagitis; G47.30 Sleep apnea, unspecified; E78.5 Hyperlipidemia, unspecified; I25.110 Atherosclerotic heart disease of native coronary artery with unstable angina pectoris; Z82.49 Family history of ischemic heart disease and other diseases of the circulatory system; I72.9 Aneurysm of unspecified site; Y84.0 Cardiac catheterization as the cause of abnormal reaction of the patient, or of later complication, without mention of misadventure at the time of the procedure; Z91.19 Patient's noncompliance with other medical treatment and regimen; F10.10 Alcohol abuse, uncomplicated; F17.210 Nicotine dependence, cigarettes, uncomplicated
CPT/HCPCS: 36415; 71045; 76936; 80048; 80053; 80061; 81270; 82550; 82553; 82668; 83690; 83735; 84100; 84443; 84484; 85025; 85347; 85379; 85610; 85730; 93005; 93010; 93458; 93571; 93798; 93976; 94760; 96365; 96368; 96375; 96376; 99152; 99153; A4216; C1769; C9113; J0153; J0360; J1644; J2001; J2250; J2270; J2405; J3010

== ENCOUNTER 2020-06-11 00:06 | Emergency (ER) | payer SELFPAY ==
--- NOTE | 2020-06-11 11:41 | CT ---
PRELIMINARY REPORT/DIRECT RADIOLOGY/EMERGENCY AFTER HOURS PROCEDURE: EXAM: CT Chest Without Intravenous Contrast. CLINICAL HISTORY: LT RIB PAIN TECHNIQUE: Axial computed tomography images of the chest without intravenous contrast. COMPARISON: None provided. FINDINGS: LUNGS: Subpleural reticulation and small bleb subjacent to the left lateral rib fractures, likely seq uelae of prior injuries/trauma. No pulmonary mass. No focal airspace consolidation. PLEURAL SPACES: Smooth left lateral pleural thickening, likely posttraumatic in etiology. No pleural effusion. No pneumothorax. HEART AND MEDIASTINUM: No cardiomegaly. No significant pericardial effusion. There is a 1.2 cm perip herally calcified nodule within the left thyroid lobe. Calcified atherosclerosis of the coronary art eries. 3.6 cm pericardial cyst. LYMPH NODES: No lymphadenopathy. CHEST WALL AND UPPER ABDOMEN: The upper abdominal solid organs are unremarkable. The chest wall is un remarkable. BONES: Multiple left-sided rib fractures of varying chronicity, for example chronic lateral rib fract ures are present with suspected acute buckle fractures of the anterolateral fifth through seventh rib s. IMPRESSION: 1. Multiple left-sided rib fractures of varying chronicity as described above. There are associated posttraumatic changes of the lung parenchyma and pleura as described above. 2. Additional findings as described above ELECTRONICALLY SIGNED BY: Ferny Licea MD Jun 11, 2020 2:24:08 AM MEDICAL LABORATORY TECHNICAL OFFICER FINAL REPORT CT CHEST: FINDINGS: Numerous old healed left-sided rib fractures are noted. Post traumatic changes of the lung pleura and parenchyma at these rib fractures are described on the preliminary report. No effusion or pneumothorax. No acute inflammatory infiltrate. I am in agreement with the preliminary report. POS: AGW
== END 2020-06-11 02:45 ==
LOC: ERS 00:06
DX: S22.42XA Multiple fractures of ribs, left side, initial encounter for closed fracture (principal); I10 Essential (primary) hypertension; F17.210 Nicotine dependence, cigarettes, uncomplicated; V49.9XXA Car occupant (driver) (passenger) injured in unspecified traffic accident, initial encounter
CPT/HCPCS: 71250; 93005

== ENCOUNTER 2021-02-01 14:39 | Emergency (ER) | payer OTHER ==
[2021-02-01] MEDS ORDERED: cloNIDine 0.1 MG TAB ONE (15:26)
[2021-02-01] MEDS ORDERED: Carvedilol 6.25 MG TAB PO SCH (15:45)
[2021-02-01 16:37] LABS: #Basophils 0.1 thou/uL (0.0-0.2); #Eosinphils 0.4 thou/uL (0.0-0.7); #Lymphocytes 3.5 thou/uL (1.20-3.40); #Monocytes 0.6 thou/uL (0.11-0.59); #Neutrophils 4.8 thou/uL (1.40-6.50); %Basophils 0.8 % (0.0-1.0); %Eosinophils 3.9 % (0.0-10.0); %Lymphocytes 37.4 % (21.0-51.0); %Monocytes 6.6 % (0.0-10.0); %Neutrophils 51.4 % (42.0-75.0); Hemoglobin 15.7 g/dL (14.0-18.0); Mean Corpuscular HGB CONC 34.4 g/dL (32.0-36.0); Mean Corpuscular Hemoglobin 30.3 pg (27.0-31.0); Mean Corpuscular Volume 87.9 fL (78.0-98.0); Mean Platelet Volume 7.6 fL (7.4-10.4); Platelet Count 215 thou/uL (130-400); RBC Distribution Width 11.8 % (11.5-14.5); White Blood Cell (WBC) Count 9.4 thou/uL (4.8-10.8)
[2021-02-01 16:52] LABS: ALT (SGPT) 13 U/L (8-55); AST (SGOT) 15 U/L (5-34); Albumin 3.8 g/dL (3.5-5.0); Alkaline Phosphatase 67 U/L (40-110); Anion Gap 11 mmol/L (10-20); BUN (Urea Nitrogen) 11 mg/dL (8.4-25.7); Bilirubin, Total 0.5 mg/dL (0.2-1.2); Calc. Creatinine Clearance 0 mL/min (70-130); Calcium 9.3 mg/dL (7.8-10.44); Carbon Dioxide 30 mmol/L (22-29); Chloride 102 mmol/L (98-107); Globulin 2.9 g/dL (2.4-3.5); Glucose 88 mg/dL (70-105); Potassium 4.2 mmol/L (3.5-5.1); Protein, Total 6.7 g/dL (6.0-8.3); Sodium 139 mmol/L (136-145)
== END 2021-02-01 17:30 ==
LOC: ERS 14:39
DX: I10 Essential (primary) hypertension (principal); F17.210 Nicotine dependence, cigarettes, uncomplicated; Z79.899 Other long term (current) drug therapy
CPT/HCPCS: 36415; 71046; 80053; 84484; 85025; 93005

== ENCOUNTER 2021-03-09 10:15 | Inpatient (IN) | payer OTHER, SELFPAY ==
[2021-03-09 13:01] LABS: #Monocytes 0.9 thou/uL (0.11-0.59); #Neutrophils 9.2 thou/uL (1.40-6.50); %Lymphocytes 16.8 % (21.0-51.0); %Monocytes 7.1 % (0.0-10.0); %Neutrophils 76.1 % (42.0-75.0); Hemoglobin 17.9 g/dL (14.0-18.0); Mean Corpuscular HGB CONC 33.8 g/dL (32.0-36.0); Mean Corpuscular Hemoglobin 29.6 pg (27.0-31.0); Mean Corpuscular Volume 87.5 fL (78.0-98.0); Platelet Count 157 thou/uL (130-400); RBC Distribution Width 12.5 % (11.5-14.5); Red Blood Cell (RBC) Count 6.07 mill/uL (4.70-6.10); White Blood Cell (WBC) Count 12.1 thou/uL (4.8-10.8)
[2021-03-09 13:23] LABS: Anion Gap 16 mmol/L (10-20); BUN (Urea Nitrogen) 42 mg/dL (8.4-25.7); Calc. Creatinine Clearance 0 mL/min (70-130); Carbon Dioxide 24 mmol/L (22-29); Chloride 105 mmol/L (98-107); Glucose 136 mg/dL (70-105); Potassium 4.8 mmol/L (3.5-5.1); Sodium 140 mmol/L (136-145)
[2021-03-09 13:24] LABS: ALT (SGPT) 29 U/L (8-55); AST (SGOT) 25 U/L (5-34); Albumin 4.1 g/dL (3.5-5.0); Alkaline Phosphatase 61 U/L (40-110); Bilirubin, Total 0.5 mg/dL (0.2-1.2); Calcium 9.3 mg/dL (7.8-10.44); Globulin 4.2 g/dL (2.4-3.5); Lipase 18 U/L (8-78); Protein, Total 8.3 g/dL (6.0-8.3)
[2021-03-09] MEDS ORDERED: Ondansetron PF 4 MG/2 ML Vial ONE ×2 (13:44→17:08)
[2021-03-09] MEDS ORDERED: Sucralfate 1 GM/10 ML UDCUP ONE (13:44)
[2021-03-09] MEDS ORDERED: Piperacillin/Tazobactam 4.5 GM VIAL ONE (14:57)
[2021-03-09] MEDS ORDERED: Morphine 4 MG/ML VIAL ONE (15:25)
[2021-03-09] MEDS ORDERED: hydrALAZINE 20 MG/ML VIAL SLOW IVP PRN (16:09)
[2021-03-09] MEDS ORDERED: SUGAMMADEX SODIUM 200 MG/2 ML VIAL ONE (16:10)
[2021-03-09] MEDS ORDERED: Fentanyl 250 MCG/5 ML VIAL ONE (16:10)
[2021-03-09] MEDS ORDERED: Lidocaine 1% w/Epinephrine 1:100K 30 ML VIAL ONE (16:15)
[2021-03-09] MEDS ORDERED: Bupivacaine 0.25% HCL 30 ML VIAL ONE (16:15)
[2021-03-09] MEDS ORDERED: Bupivacaine PF 0.5% 30 ML VIAL ONE (16:15)
[2021-03-09] MEDS ORDERED: Meperidine HCl/PF 25 MG/ML VIAL SLOW IVP PRN ×2 (16:41)
[2021-03-09] MEDS ORDERED: Promethazine HCl 25 MG/ML VIAL IM PRN (16:41)
[2021-03-09] MEDS ORDERED: Promethazine HCl 25 MG/ML VIAL IVPB PRN (16:41)
[2021-03-09] MEDS ORDERED: HYDROmorphone 2 MG/ML VIAL SLOW IVP PRN (16:41)
[2021-03-09] MEDS ORDERED: Ondansetron HCl/PF 4 MG/2 ML Vial IVP PRN (16:41)
[2021-03-09] MEDS ORDERED: Morphine Sulfate 2 MG/ML SYRINGE SLOW IVP PRN (16:41)
[2021-03-09 16:56] LABS: SARS-CoV-2 NAA Rapid Test DETECTED (NotDetected)
[2021-03-09] MEDS ORDERED: PROPOFOL 200 MG/20 ML VIAL ONE (17:08)
[2021-03-09] MEDS ORDERED: Rocuronium Bromide 10 MG/ML (10ML VIAL) ONE (17:08)
[2021-03-09] MEDS ORDERED: Succinylcholine 200 MG/10 ml SYRINGE FS ONE (17:08)
[2021-03-09] MEDS ORDERED: Lidocaine 1% PF 5 ML VIAL ONE (17:08)
[2021-03-09] MEDS ORDERED: Dexamethasone 20 MG/5 ML VIAL ONE (17:08)
[2021-03-09] MEDS ORDERED: PHENYLEPHRINE-NS 100 MCG/ML 10 ML SYRINGE ONE (17:08)
[2021-03-09] MEDS ORDERED: Piperacillin/Tazobactam 3.375 GM in Sodium Chloride 0.9% 100 ML IVPB SCH ×2 (18:00→19:00)
[2021-03-09] MEDS ORDERED: Meperidine HCl/PF 25 MG/ML VIAL ONE (18:36)
[2021-03-09 20:09] LABS: #Lymphocytes 1.1 thou/uL (1.20-3.40); #Monocytes 0.6 thou/uL (0.11-0.59); #Neutrophils 9.4 thou/uL (1.40-6.50); %Basophils 0.1 % (0.0-1.0); %Eosinophils 0.1 % (0.0-10.0); %Lymphocytes 10.3 % (21.0-51.0); %Monocytes 4.9 % (0.0-10.0); %Neutrophils 84.5 % (42.0-75.0); Hemoglobin 16.1 g/dL (14.0-18.0); Mean Corpuscular Hemoglobin 30.1 pg (27.0-31.0); Mean Corpuscular Volume 88.5 fL (78.0-98.0); Mean Platelet Volume 7.7 fL (7.4-10.4); Platelet Count 143 thou/uL (130-400); RBC Distribution Width 12.6 % (11.5-14.5); Red Blood Cell (RBC) Count 5.35 mill/uL (4.70-6.10); White Blood Cell (WBC) Count 11.1 thou/uL (4.8-10.8)
[2021-03-09 20:32] LABS: Anion Gap 17 mmol/L (10-20); BUN (Urea Nitrogen) 40 mg/dL (8.4-25.7); Calc. Creatinine Clearance 0 mL/min (70-130); Calcium 7.8 mg/dL (7.8-10.44); Carbon Dioxide 20 mmol/L (22-29); Chloride 109 mmol/L (98-107); Glucose 147 mg/dL (70-105); Potassium 4.3 mmol/L (3.5-5.1); Sodium 142 mmol/L (136-145)
[2021-03-09] MEDS ORDERED: Fentanyl 100 MCG/2 ML VIAL ONE (21:20)
[2021-03-09] MEDS ORDERED: Dexamethasone 10 MG/ML VIAL SLOW IVP SCH (23:59)
[2021-03-09] MEDS ORDERED: Enoxaparin Sodium 40 MG/0.4 ML SYRINGE SC SCH (23:59)
[2021-03-10] MEDS: Famotidine/PF 20 mg/2ml Vial SLOW IVP SCH ×2 (00:01→20:52)
[2021-03-10] MEDS: Sodium Chloride 0.9% 1,000 ML IV SCH ×2 (00:01→00:56)
[2021-03-10] MEDS: Simethicone Chewable 80 MG TAB PO PRN ×3 (01:01→21:02)
[2021-03-10] MEDS: Piperacillin/Tazobactam 3.375 GM in Sodium Chloride 0.9% 100 ML IVPB SCH ×3 (01:01→18:02)
[2021-03-10] MEDS: Acetaminophen 325 MG TAB PO PRN (01:03)
[2021-03-10 02:02] VITALS: BMI 26.7
[2021-03-10] MEDS: Morphine 4 MG/ML VIAL SLOW IVP PRN ×2 (03:18→21:03)
[2021-03-10] MEDS: Lactated Ringer's 1,000 ML IV SCH ×3 (06:14→18:55)
[2021-03-10 06:36] LABS: #Monocytes 0.4 thou/uL (0.11-0.59); #Neutrophils 9.2 thou/uL (1.40-6.50); %Eosinophils 0.2 % (0.0-10.0); %Lymphocytes 9.2 % (21.0-51.0); %Monocytes 3.7 % (0.0-10.0); Hemoglobin 14.6 g/dL (14.0-18.0); Mean Corpuscular HGB CONC 32.9 g/dL (32.0-36.0); Mean Corpuscular Hemoglobin 29.1 pg (27.0-31.0); Mean Corpuscular Volume 88.4 fL (78.0-98.0); Mean Platelet Volume 8.1 fL (7.4-10.4); Platelet Count 133 thou/uL (130-400); RBC Distribution Width 12.5 % (11.5-14.5); Red Blood Cell (RBC) Count 5.01 mill/uL (4.70-6.10); White Blood Cell (WBC) Count 10.6 thou/uL (4.8-10.8)
[2021-03-10 07:04] LABS: ALT (SGPT) 18 U/L (8-55); AST (SGOT) 20 U/L (5-34); Albumin 3.1 g/dL (3.5-5.0); Alkaline Phosphatase 45 U/L (40-110); Anion Gap 13 mmol/L (10-20); BUN (Urea Nitrogen) 42 mg/dL (8.4-25.7); Bilirubin, Total 0.4 mg/dL (0.2-1.2); Calc. Creatinine Clearance 37 mL/min (70-130); Calcium 7.9 mg/dL (7.8-10.44); Carbon Dioxide 21 mmol/L (22-29); Chloride 110 mmol/L (98-107); Globulin 3.3 g/dL (2.4-3.5); Glucose 164 mg/dL (70-105); Potassium 4.6 mmol/L (3.5-5.1); Protein, Total 6.4 g/dL (6.0-8.3); Sodium 139 mmol/L (136-145)
[2021-03-10] MEDS ORDERED: Enoxaparin Sodium 40 MG/0.4 ML SYRINGE SC SCH ×3 (09:00)
[2021-03-10 13:26] LABS: Albumin 3.3 g/dL (3.5-5.0); Anion Gap 14 mmol/L (10-20); BUN (Urea Nitrogen) 40 mg/dL (8.4-25.7); BUN/Creatinine Ratio 15.94; Calc. Creatinine Clearance 38 mL/min (70-130); Calcium 8.3 mg/dL (7.8-10.44); Carbon Dioxide 21 mmol/L (22-29); Chloride 111 mmol/L (98-107); Glucose 143 mg/dL (70-105); Phosphorus 2.3 mg/dL (2.3-4.7); Potassium 4.3 mmol/L (3.5-5.1); Sodium 142 mmol/L (136-145)
[2021-03-10 18:31] LABS: Albumin 3.1 g/dL (3.5-5.0); Anion Gap 12 mmol/L (10-20); BUN (Urea Nitrogen) 39 mg/dL (8.4-25.7); BUN/Creatinine Ratio 16.05; Calc. Creatinine Clearance 39 mL/min (70-130); Calcium 8.3 mg/dL (7.8-10.44); Carbon Dioxide 20 mmol/L (22-29); Chloride 112 mmol/L (98-107); Glucose 128 mg/dL (70-105); Phosphorus 2.3 mg/dL (2.3-4.7); Sodium 140 mmol/L (136-145)
[2021-03-10] MEDS: Enoxaparin Sodium 30 MG/0.3 ML SYRINGE SC SCH (20:52)
[2021-03-10] MEDS ORDERED: Dexamethasone 10 MG/ML VIAL SLOW IVP SCH (21:00)
[2021-03-10] MEDS ORDERED: Sodium Bicarbonate 150 MEQ in Dextrose 5% in Water 1,000 ML IV SCH (21:00)
[2021-03-10] MEDS ORDERED: Amlodipine 5 MG TAB PO SCH (21:15)
[2021-03-10 22:41] LABS: Bacteria/HPF None Seen HPF (None Seen); Bilirubin Negative (Negative); Blood, Urine 3+ (Negative); Clarity Turbid (Clear); Glucose, Urine (Dipstick) Normal (Negative); Ketone, Urine Negative (Negative); Leukocyte Negative Leu/uL (Negative); Nitrite Negative (Negative); Protein, Urine (Dipstick) 30 mg/dL (Neg-Trace); RBC/HPF 21-50 HPF (0-3); Specific Gravity, Urine 1.018 (1.002-1.036); Squamous Epithelial None Seen HPF (0-3); Urobilinogen Normal mg/dL (Less than 2)
[2021-03-10 22:44] LABS: Urine Culture Reflex Yes Yes
[2021-03-10 22:53] LABS: Creatinine, Urine 72.51 mg/dL (63-166)
[2021-03-11] MEDS: Ondansetron PF 4 MG/2 ML Vial IVP PRN ×2 (03:49→20:07)
[2021-03-11 05:24] LABS: Hemoglobin A1c 6.3 % (4.0-6.0)
[2021-03-11 05:36] LABS: Anion Gap 13 mmol/L (10-20); BUN (Urea Nitrogen) 36 mg/dL (8.4-25.7); Calc. Creatinine Clearance 45 mL/min (70-130); Calcium 8.2 mg/dL (7.8-10.44); Carbon Dioxide 19 mmol/L (22-29); Chloride 111 mmol/L (98-107); Glucose 147 mg/dL (70-105); Potassium 4.1 mmol/L (3.5-5.1); Sodium 139 mmol/L (136-145)
[2021-03-11] MEDS ORDERED: Non-Formulary Item 1 EACH (Carvedilol [Carvedilol] 12.5 MG Tablet) PO SCH (09:00)
[2021-03-11] MEDS: Piperacillin/Tazobactam 3.375 GM in Sodium Chloride 0.9% 100 ML IVPB SCH ×3 (09:27→16:17)
[2021-03-11] MEDS: Clopidogrel Bisulfate 75 MG TAB PO SCH (09:29)
[2021-03-11] MEDS: hydrALAZINE 25 MG TAB PO SCH ×3 (09:29→20:33)
[2021-03-11] MEDS: Amlodipine 10 MG TAB PO SCH (09:29)
[2021-03-11] MEDS: Metoprolol Tartrate 25 MG TAB PO SCH ×2 (09:29→20:33)
[2021-03-11] MEDS: Polyethylene Glycol 3350 17 GM Packet PO SCH (09:30)
[2021-03-11 10:32] LABS: Albumin 3.1 g/dL (3.5-5.0); Anion Gap 13 mmol/L (10-20); BUN (Urea Nitrogen) 39 mg/dL (8.4-25.7); BUN/Creatinine Ratio 17.97; Calc. Creatinine Clearance 44 mL/min (70-130); Calcium 8.3 mg/dL (7.8-10.44); Carbon Dioxide 24 mmol/L (22-29); Chloride 107 mmol/L (98-107); Glucose 182 mg/dL (70-105); Phosphorus 2.3 mg/dL (2.3-4.7); Potassium 4.1 mmol/L (3.5-5.1); Sodium 140 mmol/L (136-145)
[2021-03-11] MEDS: Aspirin Chewable 81 MG TAB PO SCH (12:53)
[2021-03-11] MEDS ORDERED: Sodium Bicarbonate 150 MEQ in Dextrose 5% in Water 1,000 ML IV SCH (14:00)
[2021-03-11] MEDS: Acetaminophen 325 MG TAB PO PRN (14:19)
[2021-03-11] MEDS: Morphine 4 MG/ML VIAL SLOW IVP PRN ×2 (16:17→20:34)
[2021-03-11] MEDS: Simethicone Chewable 80 MG TAB PO PRN (18:00)
[2021-03-11] MEDS: Albuterol 200 PUFF (6.7GM INHALER) INH SCH (20:32)
[2021-03-11] MEDS: Enoxaparin Sodium 30 MG/0.3 ML SYRINGE SC SCH (20:33)
[2021-03-11] MEDS: Atorvastatin Calcium 40 MG TAB PO SCH (20:33)
[2021-03-12] MEDS: Albuterol 200 PUFF (6.7GM INHALER) INH SCH ×4 (00:43→18:25)
[2021-03-12] MEDS: Piperacillin/Tazobactam 3.375 GM in Sodium Chloride 0.9% 100 ML IVPB SCH ×4 (00:44→22:26)
[2021-03-12] MEDS: Morphine 4 MG/ML VIAL SLOW IVP PRN ×4 (00:45→16:04)
[2021-03-12] MEDS: Ondansetron PF 4 MG/2 ML Vial IVP PRN (01:40)
[2021-03-12] MEDS: Acetaminophen 325 MG TAB PO PRN (05:07)
[2021-03-12 07:27] LABS: Anion Gap 13 mmol/L (10-20); BUN (Urea Nitrogen) 33 mg/dL (8.4-25.7); Calc. Creatinine Clearance 45 mL/min (70-130); Calcium 8.2 mg/dL (7.8-10.44); Carbon Dioxide 25 mmol/L (22-29); Chloride 107 mmol/L (98-107); Glucose 146 mg/dL (70-105); Potassium 3.7 mmol/L (3.5-5.1); Sodium 141 mmol/L (136-145)
[2021-03-12 07:51] LABS: Hemoglobin 15.3 g/dL (14.0-18.0); Mean Corpuscular HGB CONC 33.6 g/dL (32.0-36.0); Mean Corpuscular Hemoglobin 29.4 pg (27.0-31.0); Mean Corpuscular Volume 87.4 fL (78.0-98.0); Platelet Count 147 thou/uL (130-400); RBC Distribution Width 12.3 % (11.5-14.5); Red Blood Cell (RBC) Count 5.19 mill/uL (4.70-6.10); White Blood Cell (WBC) Count 8.8 thou/uL (4.8-10.8)
[2021-03-12 09:37] LABS: Band 7 % (5-11); Lymphocytes 20 % (21-51); MDiff Complete? YES; Monocytes 7 % (0-10); Neutrophil 66 % (42-75); Platelet Morphology Comment Appears Adequate
[2021-03-12] MEDS: hydrALAZINE 25 MG TAB PO SCH ×3 (09:54→21:21)
[2021-03-12] MEDS: Clopidogrel Bisulfate 75 MG TAB PO SCH (09:54)
[2021-03-12] MEDS: Metoprolol Tartrate 25 MG TAB PO SCH ×2 (09:54→21:22)
[2021-03-12] MEDS: Amlodipine 10 MG TAB PO SCH (09:57)
[2021-03-12] MEDS: Polyethylene Glycol 3350 17 GM Packet PO SCH (09:57)
[2021-03-12] MEDS: Aspirin Chewable 81 MG TAB PO SCH (13:00)
[2021-03-12] MEDS: Dextrose 5 %-0.45 % NaCl 1,000 ML IV SCH (13:56)
[2021-03-12 17:34] LABS: Creatinine, Urine 130.85 mg/dL (63-166)
[2021-03-12] MEDS: Atorvastatin Calcium 40 MG TAB PO SCH (21:21)
[2021-03-12] MEDS: Enoxaparin Sodium 30 MG/0.3 ML SYRINGE SC SCH (21:22)
[2021-03-13] MEDS: Dextrose 5 %-0.45 % NaCl 1,000 ML IV SCH ×2 (02:24→18:03)
[2021-03-13] MEDS: Albuterol 200 PUFF (6.7GM INHALER) INH SCH ×4 (02:24→17:59)
[2021-03-13 06:29] LABS: Hemoglobin 14.8 g/dL (14.0-18.0); Mean Corpuscular HGB CONC 33.5 g/dL (32.0-36.0); Mean Corpuscular Hemoglobin 29.6 pg (27.0-31.0); Mean Corpuscular Volume 88.2 fL (78.0-98.0); Mean Platelet Volume 8.3 fL (7.4-10.4); Platelet Count 137 thou/uL (130-400); RBC Distribution Width 12.3 % (11.5-14.5); Red Blood Cell (RBC) Count 5.01 mill/uL (4.70-6.10)
[2021-03-13 06:54] LABS: ALT (SGPT) 10 U/L (8-55); AST (SGOT) 13 U/L (5-34); Albumin 2.7 g/dL (3.5-5.0); Alkaline Phosphatase 38 U/L (40-110); Anion Gap 13 mmol/L (10-20); BUN (Urea Nitrogen) 29 mg/dL (8.4-25.7); Bilirubin, Total 0.7 mg/dL (0.2-1.2); CRP (Inflammatory) 31.16 mg/dL (= or < 0.5); Calc. Creatinine Clearance 43 mL/min (70-130); Calcium 8.1 mg/dL (7.8-10.44); Carbon Dioxide 23 mmol/L (22-29); Chloride 104 mmol/L (98-107); Globulin 3.1 g/dL (2.4-3.5); Glucose 151 mg/dL (70-105); Potassium 3.4 mmol/L (3.5-5.1); Protein, Total 5.8 g/dL (6.0-8.3); Sodium 137 mmol/L (136-145)
[2021-03-13 07:31] LABS: Band 5 % (5-11); Lymphocytes 17 % (21-51); MDiff Complete? YES; Neutrophil 78 % (42-75); Platelet Morphology Comment Appears Adequate; RBC Morphology Normal
[2021-03-13] MEDS: Polyethylene Glycol 3350 17 GM Packet PO SCH (08:47)
[2021-03-13] MEDS: hydrALAZINE 25 MG TAB PO SCH ×3 (08:47→20:21)
[2021-03-13] MEDS: Amlodipine 10 MG TAB PO SCH (08:47)
[2021-03-13] MEDS: Clopidogrel Bisulfate 75 MG TAB PO SCH (08:47)
[2021-03-13] MEDS: Metoprolol Tartrate 25 MG TAB PO SCH ×2 (08:48→20:21)
[2021-03-13] MEDS: Piperacillin/Tazobactam 3.375 GM in Sodium Chloride 0.9% 100 ML IVPB SCH ×3 (08:58→22:11)
[2021-03-13] MEDS: Morphine 4 MG/ML VIAL SLOW IVP PRN ×2 (12:47→22:11)
[2021-03-13] MEDS: Aspirin Chewable 81 MG TAB PO SCH (12:47)
[2021-03-13] MEDS ORDERED: Lactated Ringer's 1,000 ML IV SCH (17:15)
[2021-03-13] MEDS: Potassium Chloride 20 MEQ in Lactated Ringer's 1,000 ML IV SCH (19:06)
[2021-03-13] MEDS: Acetaminophen 325 MG TAB PO PRN (20:21)
[2021-03-13] MEDS: Atorvastatin Calcium 40 MG TAB PO SCH (20:21)
[2021-03-13] MEDS: Enoxaparin Sodium 30 MG/0.3 ML SYRINGE SC SCH (20:21)
[2021-03-13] MEDS: Melatonin 3 MG TAB PO PRN (20:21)
[2021-03-13] MEDS: Simethicone Chewable 80 MG TAB PO PRN (22:11)
[2021-03-14] MEDS: Albuterol 200 PUFF (6.7GM INHALER) INH SCH ×4 (01:55→18:14)
[2021-03-14] MEDS: Potassium Chloride 20 MEQ in Lactated Ringer's 1,000 ML IV SCH ×2 (05:08→15:11)
[2021-03-14 06:47] LABS: #Eosinphils 0.2 thou/uL (0.0-0.7); #Lymphocytes 1.4 thou/uL (1.20-3.40); #Monocytes 0.8 thou/uL (0.11-0.59); #Neutrophils 9.9 thou/uL (1.40-6.50); %Basophils 0.2 % (0.0-1.0); %Monocytes 6.3 % (0.0-10.0); %Neutrophils 80.5 % (42.0-75.0); Hemoglobin 14.8 g/dL (14.0-18.0); Mean Corpuscular HGB CONC 33.2 g/dL (32.0-36.0); Mean Corpuscular Hemoglobin 29.7 pg (27.0-31.0); Mean Corpuscular Volume 89.4 fL (78.0-98.0); Mean Platelet Volume 8.3 fL (7.4-10.4); Platelet Count 196 thou/uL (130-400); RBC Distribution Width 12.4 % (11.5-14.5); Red Blood Cell (RBC) Count 4.99 mill/uL (4.70-6.10); White Blood Cell (WBC) Count 12.2 thou/uL (4.8-10.8)
[2021-03-14 07:05] LABS: Anion Gap 13 mmol/L (10-20); BUN (Urea Nitrogen) 29 mg/dL (8.4-25.7); Calc. Creatinine Clearance 48 mL/min (70-130); Calcium 8.5 mg/dL (7.8-10.44); Carbon Dioxide 25 mmol/L (22-29); Chloride 106 mmol/L (98-107); Glucose 109 mg/dL (70-105); Potassium 4.2 mmol/L (3.5-5.1); Sodium 140 mmol/L (136-145)
[2021-03-14] MEDS: Clopidogrel Bisulfate 75 MG TAB PO SCH (08:02)
[2021-03-14] MEDS: hydrALAZINE 25 MG TAB PO SCH ×3 (08:02→20:23)
[2021-03-14] MEDS: Amlodipine 10 MG TAB PO SCH (08:02)
[2021-03-14] MEDS: Piperacillin/Tazobactam 3.375 GM in Sodium Chloride 0.9% 100 ML IVPB SCH ×3 (08:03→23:19)
[2021-03-14] MEDS: Polyethylene Glycol 3350 17 GM Packet PO SCH (08:03)
[2021-03-14] MEDS: Metoprolol Tartrate 25 MG TAB PO SCH ×2 (11:28→20:23)
[2021-03-14] MEDS: Aspirin Chewable 81 MG TAB PO SCH (11:28)
[2021-03-14] MEDS: Morphine 4 MG/ML VIAL SLOW IVP PRN (15:24)
[2021-03-14] MEDS: Albumin 25% 25 GM/100 ML BOT IVPB SCH ×2 (18:14→23:20)
[2021-03-14] MEDS: Acetaminophen 325 MG TAB PO PRN (20:22)
[2021-03-14] MEDS: Enoxaparin Sodium 30 MG/0.3 ML SYRINGE SC SCH (20:23)
[2021-03-14] MEDS: Atorvastatin Calcium 40 MG TAB PO SCH (20:23)
[2021-03-14] MEDS: Melatonin 3 MG TAB PO PRN (20:23)
[2021-03-15] MEDS: Potassium Chloride 20 MEQ in Lactated Ringer's 1,000 ML IV SCH ×2 (00:42→20:53)
[2021-03-15] MEDS: Albuterol 200 PUFF (6.7GM INHALER) INH SCH ×4 (00:44→18:11)
[2021-03-15] MEDS: Albumin 25% 25 GM/100 ML BOT IVPB SCH ×2 (05:13→12:04)
[2021-03-15] MEDS: Piperacillin/Tazobactam 3.375 GM in Sodium Chloride 0.9% 100 ML IVPB SCH (08:18)
[2021-03-15] MEDS: Clopidogrel Bisulfate 75 MG TAB PO SCH (08:18)
[2021-03-15] MEDS: Amlodipine 10 MG TAB PO SCH (08:18)
[2021-03-15] MEDS: Polyethylene Glycol 3350 17 GM Packet PO SCH (08:19)
[2021-03-15] MEDS: hydrALAZINE 25 MG TAB PO SCH ×3 (08:19→20:52)
[2021-03-15 08:48] LABS: #Eosinphils 0.4 thou/uL (0.0-0.7); #Lymphocytes 1.6 thou/uL (1.20-3.40); #Monocytes 0.8 thou/uL (0.11-0.59); #Neutrophils 8.8 thou/uL (1.40-6.50); %Basophils 0.2 % (0.0-1.0); %Eosinophils 3.2 % (0.0-10.0); %Lymphocytes 14.1 % (21.0-51.0); %Monocytes 6.7 % (0.0-10.0); %Neutrophils 75.8 % (42.0-75.0); Hemoglobin 13.8 g/dL (14.0-18.0); Mean Corpuscular HGB CONC 30.5 g/dL (32.0-36.0); Mean Corpuscular Hemoglobin 27.2 pg (27.0-31.0); Mean Corpuscular Volume 89.2 fL (78.0-98.0); Mean Platelet Volume 7.9 fL (7.4-10.4); Platelet Count 270 thou/uL (130-400); RBC Distribution Width 12.2 % (11.5-14.5); Red Blood Cell (RBC) Count 5.09 mill/uL (4.70-6.10); White Blood Cell (WBC) Count 11.6 thou/uL (4.8-10.8)
[2021-03-15] MEDS ORDERED: Potassium Chloride 20 MEQ in Lactated Ringer's 1,000 ML IV SCH (09:04)
[2021-03-15 09:18] LABS: Anion Gap 14 mmol/L (10-20); BUN (Urea Nitrogen) 26 mg/dL (8.4-25.7); Calc. Creatinine Clearance 51 mL/min (70-130); Calcium 8.8 mg/dL (7.8-10.44); Carbon Dioxide 23 mmol/L (22-29); Chloride 107 mmol/L (98-107); Glucose 84 mg/dL (70-105); Potassium 3.4 mmol/L (3.5-5.1); Sodium 141 mmol/L (136-145)
[2021-03-15] MEDS: Metoprolol Tartrate 25 MG TAB PO SCH ×2 (10:58→20:52)
[2021-03-15] MEDS: Aspirin Chewable 81 MG TAB PO SCH (11:00)
[2021-03-15] MEDS: metroNIDAZOLE 500 MG in Premix Bag 1 BAG IVPB SCH ×2 (13:57→20:54)
[2021-03-15] MEDS: Enoxaparin Sodium 30 MG/0.3 ML SYRINGE SC SCH (20:52)
[2021-03-15] MEDS: Morphine 4 MG/ML VIAL SLOW IVP PRN (20:52)
[2021-03-15] MEDS: Atorvastatin Calcium 40 MG TAB PO SCH (20:52)
[2021-03-15] MEDS: Melatonin 3 MG TAB PO PRN (20:52)
[2021-03-16] MEDS: Albuterol 200 PUFF (6.7GM INHALER) INH SCH ×4 (00:39→20:29)
[2021-03-16] MEDS: metroNIDAZOLE 500 MG in Premix Bag 1 BAG IVPB SCH ×2 (05:47→13:53)
[2021-03-16] MEDS: Potassium Chloride 20 MEQ in Lactated Ringer's 1,000 ML IV SCH ×2 (06:03→20:47)
[2021-03-16 08:05] LABS: #Eosinphils 0.3 thou/uL (0.0-0.7); #Lymphocytes 1.8 thou/uL (1.20-3.40); #Monocytes 1.3 thou/uL (0.11-0.59); #Neutrophils 10.2 thou/uL (1.40-6.50); %Basophils 0.1 % (0.0-1.0); %Lymphocytes 13.5 % (21.0-51.0); %Monocytes 9.5 % (0.0-10.0); %Neutrophils 74.9 % (42.0-75.0); Hemoglobin 13.5 g/dL (14.0-18.0); Mean Corpuscular HGB CONC 32.5 g/dL (32.0-36.0); Mean Corpuscular Hemoglobin 28.7 pg (27.0-31.0); Mean Corpuscular Volume 88.3 fL (78.0-98.0); Mean Platelet Volume 7.7 fL (7.4-10.4); Platelet Count 327 thou/uL (130-400); Red Blood Cell (RBC) Count 4.71 mill/uL (4.70-6.10); White Blood Cell (WBC) Count 13.6 thou/uL (4.8-10.8)
[2021-03-16 08:06] LABS: Anion Gap 15 mmol/L (10-20); BUN (Urea Nitrogen) 21 mg/dL (8.4-25.7); Calc. Creatinine Clearance 58 mL/min (70-130); Calcium 8.2 mg/dL (7.8-10.44); Carbon Dioxide 19 mmol/L (22-29); Chloride 110 mmol/L (98-107); Glucose 97 mg/dL (70-105); Potassium 3.4 mmol/L (3.5-5.1); Sodium 141 mmol/L (136-145)
[2021-03-16] MEDS: Polyethylene Glycol 3350 17 GM Packet PO SCH (08:23)
[2021-03-16] MEDS: Metoprolol Tartrate 25 MG TAB PO SCH ×2 (08:24→20:30)
[2021-03-16] MEDS: Clopidogrel Bisulfate 75 MG TAB PO SCH (08:24)
[2021-03-16] MEDS: Amlodipine 10 MG TAB PO SCH (08:24)
[2021-03-16] MEDS: hydrALAZINE 25 MG TAB PO SCH ×3 (08:24→20:30)
[2021-03-16] MEDS: Aspirin Chewable 81 MG TAB PO SCH (13:53)
[2021-03-16] MEDS ORDERED: Potassium Chloride 20 MEQ in Lactated Ringer's 1,000 ML IV SCH (15:45)
[2021-03-16] MEDS: Acetaminophen 325 MG TAB PO PRN (20:30)
[2021-03-16] MEDS: Melatonin 3 MG TAB PO PRN (20:30)
[2021-03-16] MEDS: metroNIDAZOLE 500 MG TAB PO SCH (20:30)
[2021-03-16] MEDS: Enoxaparin Sodium 30 MG/0.3 ML SYRINGE SC SCH (20:30)
[2021-03-16] MEDS: Atorvastatin Calcium 40 MG TAB PO SCH (20:30)
[2021-03-17] MEDS: Albuterol 200 PUFF (6.7GM INHALER) INH SCH ×4 (01:35→21:01)
[2021-03-17] MEDS: Ondansetron PF 4 MG/2 ML Vial IVP PRN ×3 (03:45→21:03)
[2021-03-17 08:07] LABS: #Eosinphils 0.2 thou/uL (0.0-0.7); #Lymphocytes 1.4 thou/uL (1.20-3.40); #Monocytes 1.1 thou/uL (0.11-0.59); #Neutrophils 14.7 thou/uL (1.40-6.50); %Basophils 0.1 % (0.0-1.0); %Eosinophils 1.3 % (0.0-10.0); %Lymphocytes 7.9 % (21.0-51.0); %Monocytes 6.2 % (0.0-10.0); %Neutrophils 84.6 % (42.0-75.0); Hemoglobin 15.7 g/dL (14.0-18.0); Mean Corpuscular HGB CONC 32.7 g/dL (32.0-36.0); Mean Corpuscular Hemoglobin 28.5 pg (27.0-31.0); Mean Corpuscular Volume 87.3 fL (78.0-98.0); Mean Platelet Volume 7.3 fL (7.4-10.4); Platelet Count 396 thou/uL (130-400); RBC Distribution Width 12.4 % (11.5-14.5); Red Blood Cell (RBC) Count 5.49 mill/uL (4.70-6.10); White Blood Cell (WBC) Count 17.3 thou/uL (4.8-10.8)
[2021-03-17 08:27] LABS: Anion Gap 13 mmol/L (10-20); BUN (Urea Nitrogen) 22 mg/dL (8.4-25.7); Calc. Creatinine Clearance 60 mL/min (70-130); Calcium 8.2 mg/dL (7.8-10.44); Carbon Dioxide 23 mmol/L (22-29); Chloride 111 mmol/L (98-107); Glucose 118 mg/dL (70-105); Potassium 3.6 mmol/L (3.5-5.1); Sodium 143 mmol/L (136-145)
[2021-03-17] MEDS: hydrALAZINE 25 MG TAB PO SCH ×3 (08:28→21:02)
[2021-03-17] MEDS: metroNIDAZOLE 500 MG TAB PO SCH ×3 (08:29→21:01)
[2021-03-17] MEDS: Acetaminophen 325 MG TAB PO PRN ×3 (08:29→21:03)
[2021-03-17] MEDS: Metoprolol Tartrate 25 MG TAB PO SCH ×2 (08:30→21:01)
[2021-03-17] MEDS: Amlodipine 10 MG TAB PO SCH (08:30)
[2021-03-17] MEDS: Clopidogrel Bisulfate 75 MG TAB PO SCH (08:30)
[2021-03-17] MEDS: Polyethylene Glycol 3350 17 GM Packet PO SCH (08:31)
[2021-03-17] MEDS: Aspirin Chewable 81 MG TAB PO SCH (12:16)
[2021-03-17] MEDS ORDERED: Iopamidol 370 76% 50 ML VIAL FS ONE (12:33)
[2021-03-17] MEDS ORDERED: Iopamidol-370 76% 500 ML 1 ML ONE (12:33)
[2021-03-17] MEDS: Enoxaparin Sodium 30 MG/0.3 ML SYRINGE SC SCH (21:01)
[2021-03-17] MEDS: Atorvastatin Calcium 40 MG TAB PO SCH (21:02)
[2021-03-17] MEDS: Melatonin 3 MG TAB PO PRN (21:03)
[2021-03-18] MEDS: Albuterol 200 PUFF (6.7GM INHALER) INH SCH ×4 (00:30→19:19)
[2021-03-18 06:27] LABS: #Basophils 0.1 thou/uL (0.0-0.2); #Eosinphils 0.3 thou/uL (0.0-0.7); #Lymphocytes 2.1 thou/uL (1.20-3.40); #Monocytes 1.4 thou/uL (0.11-0.59); %Basophils 0.3 % (0.0-1.0); %Eosinophils 1.9 % (0.0-10.0); %Lymphocytes 12.6 % (21.0-51.0); %Neutrophils 77.2 % (42.0-75.0); Hemoglobin 14.1 g/dL (14.0-18.0); Mean Corpuscular HGB CONC 32.4 g/dL (32.0-36.0); Mean Corpuscular Hemoglobin 28.3 pg (27.0-31.0); Mean Corpuscular Volume 87.2 fL (78.0-98.0); Mean Platelet Volume 7.3 fL (7.4-10.4); Platelet Count 414 thou/uL (130-400); RBC Distribution Width 12.3 % (11.5-14.5); Red Blood Cell (RBC) Count 4.99 mill/uL (4.70-6.10); White Blood Cell (WBC) Count 16.8 thou/uL (4.8-10.8)
[2021-03-18 06:41] LABS: Anion Gap 12 mmol/L (10-20); BUN (Urea Nitrogen) 21 mg/dL (8.4-25.7); Calc. Creatinine Clearance 55 mL/min (70-130); Calcium 7.9 mg/dL (7.8-10.44); Carbon Dioxide 23 mmol/L (22-29); Chloride 108 mmol/L (98-107); Glucose 122 mg/dL (70-105); Potassium 3.5 mmol/L (3.5-5.1); Sodium 139 mmol/L (136-145)
[2021-03-18] MEDS: metroNIDAZOLE 500 MG TAB PO SCH ×3 (09:27→19:55)
[2021-03-18] MEDS: Metoprolol Tartrate 25 MG TAB PO SCH ×2 (09:27→19:55)
[2021-03-18] MEDS: Amlodipine 10 MG TAB PO SCH (09:27)
[2021-03-18] MEDS: hydrALAZINE 25 MG TAB PO SCH ×3 (09:27→19:55)
[2021-03-18] MEDS: Polyethylene Glycol 3350 17 GM Packet PO SCH (09:32)
[2021-03-18] MEDS: Aspirin Chewable 81 MG TAB PO SCH ×2 (12:12→12:40)
[2021-03-18] MEDS ORDERED: Potassium Chloride 20 MEQ TAB PO SCH (12:15)
[2021-03-18] MEDS: Sodium Chloride 0.9% 1,000 ML IV SCH (12:48)
[2021-03-18 13:18] LABS: #Eosinphils 0.3 thou/uL (0.0-0.7); #Lymphocytes 2.2 thou/uL (1.20-3.40); #Monocytes 1.3 thou/uL (0.11-0.59); #Neutrophils 12.4 thou/uL (1.40-6.50); %Basophils 0.3 % (0.0-1.0); %Eosinophils 1.7 % (0.0-10.0); %Lymphocytes 13.5 % (21.0-51.0); %Monocytes 7.7 % (0.0-10.0); %Neutrophils 76.9 % (42.0-75.0); Hemoglobin 14.9 g/dL (14.0-18.0); Mean Corpuscular HGB CONC 32.7 g/dL (32.0-36.0); Mean Corpuscular Hemoglobin 28.4 pg (27.0-31.0); Platelet Count 455 thou/uL (130-400); RBC Distribution Width 12.3 % (11.5-14.5); Red Blood Cell (RBC) Count 5.24 mill/uL (4.70-6.10); White Blood Cell (WBC) Count 16.2 thou/uL (4.8-10.8)
[2021-03-18] MEDS: Acetaminophen 325 MG TAB PO PRN ×2 (15:48→21:49)
[2021-03-18] MEDS: Enoxaparin Sodium 30 MG/0.3 ML SYRINGE SC SCH (19:54)
[2021-03-18] MEDS: Atorvastatin Calcium 40 MG TAB PO SCH (19:55)
[2021-03-18] MEDS: Erythromycin Base 250 MG TAB PO SCH ×3 (19:56→22:51)
[2021-03-18] MEDS: Neomycin 500 mg Tablet PO SCH ×3 (19:56→22:51)
[2021-03-18] MEDS: Ondansetron PF 4 MG/2 ML Vial IVP PRN (21:54)
[2021-03-19] MEDS: Sodium Chloride 0.9% 1,000 ML IV SCH ×4 (01:10→23:24)
[2021-03-19] MEDS: Albuterol 200 PUFF (6.7GM INHALER) INH SCH ×4 (05:53→19:12)
[2021-03-19 07:19] LABS: #Eosinphils 0.2 thou/uL (0.0-0.7); #Lymphocytes 2.2 thou/uL (1.20-3.40); #Monocytes 1.2 thou/uL (0.11-0.59); #Neutrophils 12.4 thou/uL (1.40-6.50); %Eosinophils 1.1 % (0.0-10.0); %Lymphocytes 13.9 % (21.0-51.0); %Monocytes 7.3 % (0.0-10.0); %Neutrophils 77.7 % (42.0-75.0); Hemoglobin 15.1 g/dL (14.0-18.0); Mean Corpuscular HGB CONC 32.9 g/dL (32.0-36.0); Mean Corpuscular Volume 88.3 fL (78.0-98.0); Platelet Count 422 thou/uL (130-400); RBC Distribution Width 12.4 % (11.5-14.5); Red Blood Cell (RBC) Count 5.19 mill/uL (4.70-6.10)
[2021-03-19 07:38] LABS: ALT (SGPT) 11 U/L (8-55); AST (SGOT) 16 U/L (5-34); Albumin 2.9 g/dL (3.5-5.0); Alkaline Phosphatase 37 U/L (40-110); Anion Gap 16 mmol/L (10-20); BUN (Urea Nitrogen) 20 mg/dL (8.4-25.7); Bilirubin, Total 0.3 mg/dL (0.2-1.2); Calc. Creatinine Clearance 52 mL/min (70-130); Calcium 8.1 mg/dL (7.8-10.44); Carbon Dioxide 17 mmol/L (22-29); Cardiac Risk 4.6 (Less than 4.5); Chloride 113 mmol/L (98-107); Cholesterol 55 mg/dl (< 200 Desired); Glucose 99 mg/dL (70-105); HDL Cholesterol 12 mg/dL (>60 Neg Risk); LDL Cholesterol, Calculated 17 mg/dL; Magnesium 1.7 mg/dL (1.6-2.6); Phosphorus 3.7 mg/dL (2.3-4.7); Potassium 3.4 mmol/L (3.5-5.1); Protein, Total 5.9 g/dL (6.0-8.3); Sodium 143 mmol/L (136-145); Triglycerides 130 mg/dL (Less than 150)
[2021-03-19] MEDS: Amlodipine 10 MG TAB PO SCH (08:18)
[2021-03-19] MEDS: metroNIDAZOLE 500 MG TAB PO SCH ×2 (08:18→14:53)
[2021-03-19] MEDS: Metoprolol Tartrate 25 MG TAB PO SCH (08:18)
[2021-03-19] MEDS: hydrALAZINE 25 MG TAB PO SCH ×2 (08:18→14:52)
[2021-03-19] MEDS: Polyethylene Glycol 3350 17 GM Packet PO SCH (09:46)
[2021-03-19 10:47] LABS: PTT 36.5 sec (22.9-36.1)
[2021-03-19 10:48] LABS: INR-International Normal Ratio 1.4; Prothrombin Time 16.7 sec (12.0-14.7)
[2021-03-19] MEDS: Aspirin Chewable 81 MG TAB PO SCH (13:01)
[2021-03-19] MEDS ORDERED: Fentanyl 250 MCG/5 ML VIAL ONE (13:41)
[2021-03-19] MEDS ORDERED: PROPOFOL 200 MG/20 ML VIAL ONE (13:55)
[2021-03-19] MEDS ORDERED: Bupivacaine HCl 0.5%/Epinephrine 1:200,000/PF 30 ml Vial ONE (13:55)
[2021-03-19] MEDS ORDERED: PHENYLEPHRINE-NS 100 MCG/ML 10 ML SYRINGE ONE (13:55)
[2021-03-19] MEDS ORDERED: Rocuronium Bromide 10 MG/ML (10ML VIAL) ONE (13:55)
[2021-03-19] MEDS ORDERED: Dexamethasone 20 MG/5 ML VIAL ONE (13:55)
[2021-03-19] MEDS ORDERED: Vecuronium 10 MG VIAL ONE (13:55)
[2021-03-19] MEDS ORDERED: Lidocaine 1% PF 5 ML VIAL ONE (13:55)
[2021-03-19] MEDS ORDERED: Succinylcholine 200 MG/10 ml SYRINGE FS ONE (13:55)
[2021-03-19] MEDS ORDERED: Ondansetron PF 4 MG/2 ML Vial ONE (13:55)
[2021-03-19] MEDS ORDERED: ceFOXitin 1 GM VIAL ONE (14:28)
[2021-03-19] MEDS ORDERED: Phenylephrine 10 MG/ML VIAL ONE (15:04)
[2021-03-19] MEDS ORDERED: Albumin 5% 500 ML ONE (16:35)
[2021-03-19] MEDS ORDERED: Sodium Chloride 0.9% 30 ML ONE (17:14)
[2021-03-19] MEDS ORDERED: Propofol 1,000 MG/100 ML VIAL IV ONE (18:02)
[2021-03-19 19:39] LABS: Actual Bicarbonate (HCO3a) 15.5 mEq/L (22-28); Base Excess (BEa) -12.1 mEq/L (-2.0 to +3.0); CO2 Tension 41.5 mmHg (35.0-45.0); Calcium, Ionized (arterial) 1.07 mmol/L (1.12-1.30); Carboxyhemoglobin (COHb) 0.1 gm% (0.0-3.0); Hemoglobin (Hb) 12.2 g/dL (14.0-18.0); Potassium - ABG Lab 3.58 mmol/L (3.70-5.30)
[2021-03-19 19:44] LABS: O2 Tension (PaO2), arterial 59.9 mmHg (80.0-100.0); pH, Arterial 7.19 (7.35-7.45)
[2021-03-19 19:45] LABS: ALV-art Gradient 244.725 mmHg (0-20); Puncture Site Arterial Line
[2021-03-19] MEDS ORDERED: Ventilator Sedation Protocol 1 EACH FS ONE (19:58)
[2021-03-19] MEDS ORDERED: Promethazine HCl 25 MG/ML VIAL IM PRN (19:58)
[2021-03-19] MEDS ORDERED: Sodium Bicarb 50 MEQ/50 ML Abboject 8.4% SYRINGE ONE (19:59)
[2021-03-19] MEDS ORDERED: Fentanyl BOLUS 250 ML IVPB PRN (20:15)
[2021-03-19] MEDS ORDERED: Lorazepam 2 MG/ML VIAL SLOW IVP PRN (20:15)
[2021-03-19] MEDS ORDERED: DISCONTINUE PREVIOUS NARCOTIC PAIN MEDICATIONS AND BENZODIAZEPINES FS SCH (20:15)
[2021-03-19] MEDS ORDERED: Sodium Bicarb 50 MEQ/50 ML Abboject 8.4% SYRINGE IVP SCH (20:15)
[2021-03-19] MEDS ORDERED: Morphine 2 MG/ML VIAL SLOW IVP PRN (20:15)
[2021-03-19] MEDS ORDERED: Propofol BOLUS 1,000 MG/100 ML VIAL IV PRN (20:15)
[2021-03-19] MEDS ORDERED: Norepinephrine 8 MG/0.9% NS 250 ML ONE (20:27)
[2021-03-19] MEDS ORDERED: Fentanyl CADD 0 ML ONE (20:28)
[2021-03-19] MEDS ORDERED: Piperacillin/Tazobactam 3.375 GM in Sodium Chloride 0.9% 100 ML IVPB SCH (20:30)
[2021-03-19] MEDS ORDERED: Fentanyl CADD 100 ML ONE (20:30)
[2021-03-19] MEDS ORDERED: Famotidine 20 MG TAB PO SCH (21:00)
[2021-03-19] MEDS ORDERED: Famotidine/PF 20 mg/2ml Vial SLOW IVP SCH (21:00)
[2021-03-19 21:05] LABS: #Lymphocytes 0.8 thou/uL (1.20-3.40); #Monocytes 0.9 thou/uL (0.11-0.59); #Neutrophils 18.1 thou/uL (1.40-6.50); %Eosinophils 0.1 % (0.0-10.0); %Lymphocytes 4.2 % (21.0-51.0); %Monocytes 4.6 % (0.0-10.0); %Neutrophils 91.1 % (42.0-75.0); Hemoglobin 10.2 g/dL (14.0-18.0); Mean Corpuscular HGB CONC 33.7 g/dL (32.0-36.0); Mean Corpuscular Hemoglobin 29.9 pg (27.0-31.0); Mean Corpuscular Volume 88.7 fL (78.0-98.0); Platelet Count 474 thou/uL (130-400); RBC Distribution Width 12.1 % (11.5-14.5); Red Blood Cell (RBC) Count 3.42 mill/uL (4.70-6.10); White Blood Cell (WBC) Count 19.9 thou/uL (4.8-10.8)
[2021-03-19] MEDS: Sodium Bicarbonate 150 MEQ in Dextrose 5% in Water 1,000 ML IV SCH (21:11)
[2021-03-19] MEDS: Enoxaparin Sodium 30 MG/0.3 ML SYRINGE SC SCH (21:11)
[2021-03-19] MEDS: Fentanyl CADD 100 ML IV SCH (21:13)
[2021-03-19 21:25] LABS: Anion Gap 18 mmol/L (10-20); BUN (Urea Nitrogen) 22 mg/dL (8.4-25.7); Calc. Creatinine Clearance 49 mL/min (70-130); Calcium 6.6 mg/dL (7.8-10.44); Carbon Dioxide 15 mmol/L (22-29); Chloride 116 mmol/L (98-107); Glucose 177 mg/dL (70-105); Potassium 3.3 mmol/L (3.5-5.1); Sodium 146 mmol/L (136-145)
[2021-03-19] MEDS ORDERED: Pantoprazole 40 MG VIAL IVP SCH (21:45)
[2021-03-19] MEDS ORDERED: Electrolyte Replacement Protocol 1 EACH FS ONE (22:21)
[2021-03-19] MEDS ORDERED: Potassium Chloride 20 MEQ in Lactated Ringer's 1,000 ML IV SCH (22:30)
[2021-03-19] MEDS: Pantoprazole 40 MG VIAL IVP SCH (23:14)
[2021-03-19] MEDS ORDERED: Potassium Chloride 40 MEQ in Premix Bag 1 BAG IVPB SCH (23:15)
[2021-03-19] MEDS ORDERED: Magnesium 2 GM/50 ML 2 GM in Premix Bag 1 BAG IVPB SCH (23:15)
[2021-03-20] MEDS: Norepinephrine 8 MG/0.9% NS 250 ML IVPB SCH ×2 (02:00→20:19)
[2021-03-20] MEDS: Albuterol 200 PUFF (6.7GM INHALER) INH SCH ×4 (02:49→18:58)
[2021-03-20] MEDS: Sodium Chloride 0.9% 1,000 ML IV SCH ×2 (04:26→19:39)
[2021-03-20] MEDS: Propofol 1,000 MG/100 ML VIAL IV PRN ×2 (04:27→08:18)
[2021-03-20] MEDS: Sodium Bicarbonate 150 MEQ in Dextrose 5% in Water 1,000 ML IV SCH (04:48)
[2021-03-20 04:49] LABS: #Lymphocytes 1.2 thou/uL (1.20-3.40); #Neutrophils 13.4 thou/uL (1.40-6.50); %Eosinophils 0.1 % (0.0-10.0); %Lymphocytes 7.8 % (21.0-51.0); %Monocytes 6.2 % (0.0-10.0); %Neutrophils 85.8 % (42.0-75.0); Hemoglobin 10.4 g/dL (14.0-18.0); Mean Corpuscular Hemoglobin 29.6 pg (27.0-31.0); Mean Corpuscular Volume 86.9 fL (78.0-98.0); Mean Platelet Volume 7.5 fL (7.4-10.4); Platelet Count 536 thou/uL (130-400); RBC Distribution Width 12.2 % (11.5-14.5); Red Blood Cell (RBC) Count 3.53 mill/uL (4.70-6.10); White Blood Cell (WBC) Count 15.7 thou/uL (4.8-10.8)
[2021-03-20] MEDS: Piperacillin/Tazobactam 3.375 GM in Sodium Chloride 0.9% 100 ML IVPB SCH ×3 (04:51→20:18)
[2021-03-20 05:09] LABS: Anion Gap 16 mmol/L (10-20); BUN (Urea Nitrogen) 26 mg/dL (8.4-25.7); Calc. Creatinine Clearance 43 mL/min (70-130); Calcium 7.2 mg/dL (7.8-10.44); Carbon Dioxide 19 mmol/L (22-29); Chloride 110 mmol/L (98-107); Glucose 299 mg/dL (70-105); Potassium 3.6 mmol/L (3.5-5.1); Sodium 141 mmol/L (136-145)
[2021-03-20 08:39] LABS: Actual Bicarbonate (HCO3a) 22.6 mEq/L (22-28); Base Excess (BEa) 2.7 mEq/L (-2.0 to +3.0); Calcium, Ionized (arterial) 0.95 mmol/L (1.12-1.30); Carboxyhemoglobin (COHb) 0.3 gm% (0.0-3.0); Hemoglobin (Hb) 10.2 g/dL (14.0-18.0); O2 Tension (PaO2), arterial 79.2 mmHg (80.0-100.0); Potassium - ABG Lab 3.36 mmol/L (3.70-5.30)
[2021-03-20] MEDS ORDERED: Insulin Regular 300 UNITS/3 ML VIAL SC PRN (09:00)
[2021-03-20] MEDS ORDERED: Dextrose 50% Abboject 50 ML SYRINGE IVP PRN (09:00)
[2021-03-20] MEDS ORDERED: Dextrose 5% in Water 1,000 ML IV PRN (09:00)
[2021-03-20 09:12] LABS: CO2 Tension 21.5 mmHg (35.0-45.0); Puncture Site Arterial Line; pH, Arterial 7.64 (7.35-7.45)
[2021-03-20 09:13] LABS: ALV-art Gradient 321.725 mmHg (0-20)
[2021-03-20] MEDS ORDERED: Lactated Ringer's 1,000 ML IV SCH (09:30)
[2021-03-20] MEDS: Potassium Chloride 20 MEQ in Lactated Ringer's 1,000 ML IV SCH ×2 (13:11→20:18)
[2021-03-20] MEDS: Fentanyl CADD 100 ML IV SCH (13:54)
[2021-03-20] MEDS: Pantoprazole 40 MG VIAL IVP SCH (20:19)
[2021-03-20] MEDS: Enoxaparin Sodium 30 MG/0.3 ML SYRINGE SC SCH (20:19)
[2021-03-21] MEDS: Albuterol 200 PUFF (6.7GM INHALER) INH SCH ×4 (01:16→18:20)
[2021-03-21 03:54] LABS: #Eosinphils 0.1 thou/uL (0.0-0.7); #Lymphocytes 2.3 thou/uL (1.20-3.40); #Monocytes 1.2 thou/uL (0.11-0.59); #Neutrophils 15.6 thou/uL (1.40-6.50); %Basophils 0.2 % (0.0-1.0); %Eosinophils 0.3 % (0.0-10.0); %Lymphocytes 12.1 % (21.0-51.0); %Monocytes 6.2 % (0.0-10.0); %Neutrophils 81.2 % (42.0-75.0); Hemoglobin 9.5 g/dL (14.0-18.0); Mean Corpuscular HGB CONC 33.5 g/dL (32.0-36.0); Mean Corpuscular Hemoglobin 29.7 pg (27.0-31.0); Mean Corpuscular Volume 88.5 fL (78.0-98.0); Mean Platelet Volume 7.3 fL (7.4-10.4); Platelet Count 452 thou/uL (130-400); RBC Distribution Width 12.4 % (11.5-14.5); Red Blood Cell (RBC) Count 3.19 mill/uL (4.70-6.10); White Blood Cell (WBC) Count 19.2 thou/uL (4.8-10.8)
[2021-03-21] MEDS: Potassium Chloride 20 MEQ in Lactated Ringer's 1,000 ML IV SCH ×3 (04:02→19:52)
[2021-03-21] MEDS: Piperacillin/Tazobactam 3.375 GM in Sodium Chloride 0.9% 100 ML IVPB SCH ×3 (04:10→19:52)
[2021-03-21 04:31] LABS: ALT (SGPT) 11 U/L (8-55); AST (SGOT) 17 U/L (5-34); Albumin 2.4 g/dL (3.5-5.0); Alkaline Phosphatase 37 U/L (40-110); Anion Gap 11 mmol/L (10-20); BUN (Urea Nitrogen) 27 mg/dL (8.4-25.7); Bilirubin, Total 0.2 mg/dL (0.2-1.2); Calc. Creatinine Clearance 44 mL/min (70-130); Calcium 7.2 mg/dL (7.8-10.44); Carbon Dioxide 26 mmol/L (22-29); Chloride 112 mmol/L (98-107); Glucose 128 mg/dL (70-105); Potassium 4.3 mmol/L (3.5-5.1); Protein, Total 4.4 g/dL (6.0-8.3); Sodium 145 mmol/L (136-145)
[2021-03-21 08:46] LABS: Actual Bicarbonate (HCO3a) 25.1 mEq/L (22-28); Base Excess (BEa) 1.9 mEq/L (-2.0 to +3.0); CO2 Tension 33.8 mmHg (35.0-45.0); Carboxyhemoglobin (COHb) 0.3 gm% (0.0-3.0); Hemoglobin (Hb) 9.4 g/dL (14.0-18.0); O2 Tension (PaO2), arterial 66.9 mmHg (80.0-100.0); Potassium - ABG Lab 4.17 mmol/L (3.70-5.30); pH, Arterial 7.49 (7.35-7.45)
[2021-03-21 08:51] LABS: Puncture Site Arterial Line
[2021-03-21] MEDS: Morphine 2 MG/ML VIAL SLOW IVP PRN (12:45)
[2021-03-21] MEDS: Morphine 4 MG/ML VIAL SLOW IVP PRN ×2 (15:23→20:00)
[2021-03-21] MEDS: Ondansetron PF 4 MG/2 ML Vial IVP PRN (15:35)
[2021-03-21] MEDS: Carvedilol 6.25 MG TAB PO SCH (19:53)
[2021-03-21] MEDS: Pantoprazole 40 MG VIAL IVP SCH (19:53)
[2021-03-21] MEDS: Enoxaparin Sodium 30 MG/0.3 ML SYRINGE SC SCH (20:05)
[2021-03-22] MEDS: Morphine 4 MG/ML VIAL SLOW IVP PRN ×4 (00:04→17:17)
[2021-03-22] MEDS: Potassium Chloride 20 MEQ in Lactated Ringer's 1,000 ML IV SCH ×5 (02:45→19:50)
[2021-03-22] MEDS: Albuterol 200 PUFF (6.7GM INHALER) INH SCH ×3 (02:53→14:02)
[2021-03-22] MEDS: Acetaminophen 500 MG TAB PO PRN ×3 (02:57→17:18)
[2021-03-22 03:50] LABS: #Basophils 0.1 thou/uL (0.0-0.2); #Eosinphils 0.2 thou/uL (0.0-0.7); #Lymphocytes 2.6 thou/uL (1.20-3.40); #Neutrophils 14.1 thou/uL (1.40-6.50); %Basophils 0.3 % (0.0-1.0); %Lymphocytes 14.3 % (21.0-51.0); %Monocytes 5.5 % (0.0-10.0); %Neutrophils 78.9 % (42.0-75.0); Hemoglobin 9.9 g/dL (14.0-18.0); Mean Corpuscular Hemoglobin 29.4 pg (27.0-31.0); Mean Corpuscular Volume 88.9 fL (78.0-98.0); Mean Platelet Volume 7.2 fL (7.4-10.4); Platelet Count 503 thou/uL (130-400); RBC Distribution Width 12.4 % (11.5-14.5); Red Blood Cell (RBC) Count 3.37 mill/uL (4.70-6.10); White Blood Cell (WBC) Count 17.8 thou/uL (4.8-10.8)
[2021-03-22] MEDS: Piperacillin/Tazobactam 3.375 GM in Sodium Chloride 0.9% 100 ML IVPB SCH ×3 (04:03→20:36)
[2021-03-22 04:13] LABS: ALT (SGPT) 10 U/L (8-55); AST (SGOT) 19 U/L (5-34); Albumin 2.6 g/dL (3.5-5.0); Alkaline Phosphatase 46 U/L (40-110); Anion Gap 12 mmol/L (10-20); BUN (Urea Nitrogen) 20 mg/dL (8.4-25.7); Bilirubin, Total 0.3 mg/dL (0.2-1.2); Calc. Creatinine Clearance 53 mL/min (70-130); Calcium 7.8 mg/dL (7.8-10.44); Carbon Dioxide 25 mmol/L (22-29); Chloride 111 mmol/L (98-107); Globulin 2.2 g/dL (2.4-3.5); Glucose 88 mg/dL (70-105); Potassium 4.6 mmol/L (3.5-5.1); Protein, Total 4.8 g/dL (6.0-8.3); Sodium 143 mmol/L (136-145)
[2021-03-22] MEDS: Morphine 2 MG/ML VIAL SLOW IVP PRN (05:55)
[2021-03-22] MEDS: Ondansetron PF 4 MG/2 ML Vial IVP PRN ×3 (05:56→17:17)
[2021-03-22] MEDS: Carvedilol 6.25 MG TAB PO SCH ×2 (07:36→20:37)
[2021-03-22] MEDS: Enoxaparin Sodium 30 MG/0.3 ML SYRINGE SC SCH (20:37)
[2021-03-23] MEDS: Ondansetron PF 4 MG/2 ML Vial IVP PRN ×2 (00:14→08:19)
[2021-03-23] MEDS: Morphine 4 MG/ML VIAL SLOW IVP PRN ×2 (00:14→08:18)
[2021-03-23] MEDS: hydrALAZINE 20 MG/ML VIAL SLOW IVP PRN (00:16)
[2021-03-23] MEDS: Potassium Chloride 20 MEQ in Lactated Ringer's 1,000 ML IV SCH ×3 (01:46→18:40)
[2021-03-23] MEDS: Albuterol 200 PUFF (6.7GM INHALER) INH SCH ×5 (01:56→18:34)
[2021-03-23] MEDS: Piperacillin/Tazobactam 3.375 GM in Sodium Chloride 0.9% 100 ML IVPB SCH ×3 (04:03→20:24)
[2021-03-23 06:14] LABS: #Eosinphils 0.3 thou/uL (0.0-0.7); #Lymphocytes 2.3 thou/uL (1.20-3.40); #Monocytes 0.8 thou/uL (0.11-0.59); #Neutrophils 11.8 thou/uL (1.40-6.50); %Basophils 0.2 % (0.0-1.0); %Lymphocytes 15.3 % (21.0-51.0); %Monocytes 5.4 % (0.0-10.0); %Neutrophils 77.2 % (42.0-75.0); Hemoglobin 9.6 g/dL (14.0-18.0); Mean Corpuscular HGB CONC 31.9 g/dL (32.0-36.0); Mean Corpuscular Hemoglobin 28.1 pg (27.0-31.0); Mean Corpuscular Volume 88.2 fL (78.0-98.0); Mean Platelet Volume 6.8 fL (7.4-10.4); Platelet Count 567 thou/uL (130-400); RBC Distribution Width 12.1 % (11.5-14.5); Red Blood Cell (RBC) Count 3.43 mill/uL (4.70-6.10); White Blood Cell (WBC) Count 15.3 thou/uL (4.8-10.8)
[2021-03-23 06:38] LABS: ALT (SGPT) 12 U/L (8-55); AST (SGOT) 18 U/L (5-34); Albumin 2.5 g/dL (3.5-5.0); Alkaline Phosphatase 40 U/L (40-110); Anion Gap 11 mmol/L (10-20); BUN (Urea Nitrogen) 14 mg/dL (8.4-25.7); Bilirubin, Total 0.3 mg/dL (0.2-1.2); Calc. Creatinine Clearance 61 mL/min (70-130); Calcium 7.9 mg/dL (7.8-10.44); Carbon Dioxide 25 mmol/L (22-29); Chloride 105 mmol/L (98-107); Globulin 2.5 g/dL (2.4-3.5); Glucose 97 mg/dL (70-105); Potassium 4.5 mmol/L (3.5-5.1); Sodium 136 mmol/L (136-145)
[2021-03-23] MEDS: Carvedilol 6.25 MG TAB PO SCH (08:18)
[2021-03-23] MEDS: Amlodipine 5 MG TAB PO SCH (08:18)
[2021-03-23] MEDS ORDERED: Carvedilol 25 MG TAB PO SCH (10:45)
[2021-03-23] MEDS ORDERED: Potassium Chloride 20 MEQ in Lactated Ringer's 1,000 ML IV SCH (17:22)
[2021-03-23] MEDS: Carvedilol 25 MG TAB PO SCH (20:23)
[2021-03-23] MEDS: Enoxaparin Sodium 30 MG/0.3 ML SYRINGE SC SCH (20:24)
[2021-03-23] MEDS: Pantoprazole 40 MG VIAL IVP SCH (20:24)
[2021-03-23] MEDS: HYDROcodone/Acetaminophen 7.5/325 mg Tablet PO PRN (22:55)
[2021-03-24] MEDS: Albuterol 200 PUFF (6.7GM INHALER) INH SCH ×2 (07:55→20:15)
[2021-03-24] MEDS: Piperacillin/Tazobactam 3.375 GM in Sodium Chloride 0.9% 100 ML IVPB SCH ×3 (07:56→20:15)
[2021-03-24] MEDS: HYDROcodone/Acetaminophen 7.5/325 mg Tablet PO PRN ×4 (08:39→23:42)
[2021-03-24] MEDS: Carvedilol 25 MG TAB PO SCH ×2 (08:39→20:14)
[2021-03-24 14:42] LABS: #Eosinphils 0.2 thou/uL (0.0-0.7); #Lymphocytes 2.1 thou/uL (1.20-3.40); #Monocytes 0.9 thou/uL (0.11-0.59); #Neutrophils 8.3 thou/uL (1.40-6.50); %Basophils 0.3 % (0.0-1.0); %Eosinophils 2.1 % (0.0-10.0); %Lymphocytes 17.9 % (21.0-51.0); %Monocytes 8.1 % (0.0-10.0); %Neutrophils 71.5 % (42.0-75.0); Hemoglobin 9.6 g/dL (14.0-18.0); Mean Corpuscular HGB CONC 33.2 g/dL (32.0-36.0); Mean Corpuscular Hemoglobin 29.1 pg (27.0-31.0); Mean Corpuscular Volume 87.7 fL (78.0-98.0); Mean Platelet Volume 6.6 fL (7.4-10.4); Platelet Count 538 thou/uL (130-400); White Blood Cell (WBC) Count 11.6 thou/uL (4.8-10.8)
[2021-03-24 15:02] LABS: Albumin 2.5 g/dL (3.5-5.0); Anion Gap 9 mmol/L (10-20); BUN (Urea Nitrogen) 12 mg/dL (8.4-25.7); BUN/Creatinine Ratio 7.45; Calc. Creatinine Clearance 59 mL/min (70-130); Calcium 7.9 mg/dL (7.8-10.44); Carbon Dioxide 25 mmol/L (22-29); Chloride 104 mmol/L (98-107); Glucose 128 mg/dL (70-105); Magnesium 1.4 mg/dL (1.6-2.6); Phosphorus 3.8 mg/dL (2.3-4.7); Potassium 4.2 mmol/L (3.5-5.1); Sodium 134 mmol/L (136-145)
[2021-03-24] MEDS ORDERED: Magnesium Sulfate 4 GM in Sodium Chloride 0.9% 250 ML 250 ML IVPB SCH (19:45)
[2021-03-24] MEDS: Enoxaparin Sodium 30 MG/0.3 ML SYRINGE SC SCH (20:14)
[2021-03-24] MEDS: Lactated Ringer's 1,000 ML IV SCH (20:15)
[2021-03-25] MEDS: Albuterol 200 PUFF (6.7GM INHALER) INH SCH ×4 (02:18→20:46)
[2021-03-25] MEDS: Piperacillin/Tazobactam 3.375 GM in Sodium Chloride 0.9% 100 ML IVPB SCH ×3 (04:15→20:45)
[2021-03-25] MEDS: Lactated Ringer's 1,000 ML IV SCH ×3 (06:05→20:46)
[2021-03-25 06:34] LABS: Albumin 2.5 g/dL (3.5-5.0); Anion Gap 11 mmol/L (10-20); BUN (Urea Nitrogen) 10 mg/dL (8.4-25.7); BUN/Creatinine Ratio 6.76; Calc. Creatinine Clearance 64 mL/min (70-130); Calcium 8.2 mg/dL (7.8-10.44); Carbon Dioxide 26 mmol/L (22-29); Chloride 105 mmol/L (98-107); Glucose 105 mg/dL (70-105); Phosphorus 3.2 mg/dL (2.3-4.7); Sodium 138 mmol/L (136-145)
[2021-03-25] MEDS: Amlodipine 5 MG TAB PO SCH (07:44)
[2021-03-25] MEDS: HYDROcodone/Acetaminophen 7.5/325 mg Tablet PO PRN ×4 (07:44→20:48)
[2021-03-25] MEDS: Carvedilol 25 MG TAB PO SCH ×2 (07:45→20:45)
[2021-03-25] MEDS: hydrALAZINE 20 MG/ML VIAL SLOW IVP PRN (20:44)
[2021-03-25] MEDS: Enoxaparin Sodium 30 MG/0.3 ML SYRINGE SC SCH (20:48)
[2021-03-26] MEDS: Albuterol 200 PUFF (6.7GM INHALER) INH SCH ×4 (01:21→17:55)
[2021-03-26] MEDS: HYDROcodone/Acetaminophen 7.5/325 mg Tablet PO PRN ×5 (03:45→23:38)
[2021-03-26] MEDS: Piperacillin/Tazobactam 3.375 GM in Sodium Chloride 0.9% 100 ML IVPB SCH ×2 (03:45→10:38)
[2021-03-26] MEDS: Carvedilol 25 MG TAB PO SCH ×2 (07:40→20:29)
[2021-03-26] MEDS: Lactated Ringer's 1,000 ML IV SCH (07:42)
[2021-03-26] MEDS: Amlodipine 10 MG TAB PO SCH (07:42)
[2021-03-26 07:51] LABS: Albumin 2.6 g/dL (3.5-5.0); Anion Gap 11 mmol/L (10-20); BUN (Urea Nitrogen) 9 mg/dL (8.4-25.7); BUN/Creatinine Ratio 6.29; Calc. Creatinine Clearance 66 mL/min (70-130); Calcium 8.5 mg/dL (7.8-10.44); Carbon Dioxide 23 mmol/L (22-29); Chloride 107 mmol/L (98-107); Glucose 97 mg/dL (70-105); Iron 13 ug/dL (65-175); Iron Binding Capacity, Total 174 mcg/dL (261-462); Phosphorus 3.5 mg/dL (2.3-4.7); Potassium 4.1 mmol/L (3.5-5.1); Sodium 137 mmol/L (136-145)
[2021-03-26] MEDS ORDERED: Lactated Ringer's 1,000 ML IV SCH (08:45)
[2021-03-26] MEDS ORDERED: Amlodipine 5 MG TAB PO SCH (09:00)
[2021-03-26 09:41] LABS: #Eosinphils 0.2 thou/uL (0.0-0.7); #Lymphocytes 2.5 thou/uL (1.20-3.40); #Monocytes 0.8 thou/uL (0.11-0.59); #Neutrophils 5.4 thou/uL (1.40-6.50); %Basophils 0.4 % (0.0-1.0); %Eosinophils 2.7 % (0.0-10.0); %Lymphocytes 27.5 % (21.0-51.0); %Monocytes 9.2 % (0.0-10.0); %Neutrophils 60.2 % (42.0-75.0); Hemoglobin 9.7 g/dL (14.0-18.0); Mean Corpuscular HGB CONC 32.6 g/dL (32.0-36.0); Mean Corpuscular Hemoglobin 28.4 pg (27.0-31.0); Mean Corpuscular Volume 87.1 fL (78.0-98.0); Mean Platelet Volume 6.7 fL (7.4-10.4); Platelet Count 549 thou/uL (130-400); RBC Distribution Width 12.2 % (11.5-14.5)
[2021-03-26] MEDS: hydrALAZINE 20 MG/ML VIAL SLOW IVP PRN ×2 (13:00→18:27)
[2021-03-26] MEDS: Iron, Sodium Ferric Gluconate 250 MG in Sodium Chloride 0.9% 250 ML 250 ML IVPB SCH (14:29)
[2021-03-26] MEDS: metroNIDAZOLE 500 MG TAB PO SCH (20:30)
[2021-03-26] MEDS: Enoxaparin Sodium 30 MG/0.3 ML SYRINGE SC SCH (20:30)
[2021-03-27] MEDS: Albuterol 200 PUFF (6.7GM INHALER) INH SCH ×3 (00:32→13:36)
[2021-03-27] MEDS: Iron, Sodium Ferric Gluconate 250 MG in Sodium Chloride 0.9% 250 ML 250 ML IVPB SCH (00:32)
[2021-03-27] MEDS: HYDROcodone/Acetaminophen 7.5/325 mg Tablet PO PRN ×3 (05:45→15:00)
[2021-03-27 07:52] LABS: Albumin 2.7 g/dL (3.5-5.0); Anion Gap 13 mmol/L (10-20); BUN (Urea Nitrogen) 9 mg/dL (8.4-25.7); BUN/Creatinine Ratio 6.52; Calc. Creatinine Clearance 69 mL/min (70-130); Calcium 8.6 mg/dL (7.8-10.44); Carbon Dioxide 21 mmol/L (22-29); Chloride 105 mmol/L (98-107); Glucose 98 mg/dL (70-105); Phosphorus 3.7 mg/dL (2.3-4.7); Potassium 4.1 mmol/L (3.5-5.1); Sodium 135 mmol/L (136-145)
[2021-03-27] MEDS: Amlodipine 10 MG TAB PO SCH (07:54)
[2021-03-27] MEDS: Carvedilol 25 MG TAB PO SCH (07:54)
[2021-03-27] MEDS: metroNIDAZOLE 500 MG TAB PO SCH ×2 (07:54→13:36)
[2021-03-27] MEDS ORDERED: NIFEdipine XL 30 MG TAB PO SCH (13:00)
[2021-03-27 14:55] LABS: Actual Bicarbonate (HCO3a) 16.2 mEq/L (22-28); Analyzer IN Cardio OR; Base Excess (BEa) -9.8 mEq/L (-2.0 to +3.0); CO2 Tension 35.7 mmHg (35.0-45.0); Calcium, Ionized (arterial) 1.07 mmol/L (1.12-1.30); Carboxyhemoglobin (COHb) 0.7 gm% (0.0-3.0); Hemoglobin (Hb) 13.4 g/dL (14.0-18.0); O2 Tension (PaO2), arterial 72.2 mmHg (80.0-100.0); Potassium - ABG Lab 4.04 mmol/L (3.70-5.30); pH, Arterial 7.27 (7.35-7.45)
[2021-03-27 14:56] LABS: Puncture Site Arterial Line
[2021-03-27 16:05] VITALS: BP 161/93; TEMP 97.9
[2021-03-27] MEDS ORDERED: Sodium Bicarbonate Tab 325 MG TAB PO SCH (21:00)
[2021-03-28] MEDS ORDERED: NIFEdipine XL 60 MG TAB PO SCH (09:00)
== END 2021-03-27 16:20 | disposition home or self-care (01) | DRG 853 ==
LOC: ERS 10:15 → EEVIPCON 16:08 → SURG A 16:08 → SURG B 22:41 → T4-A 03-12 04:26 → CCU 03-19 18:54 → T4-A 03-22 19:51
PROVIDERS: ADMIT Internal Medicine; ATTEND Internal Medicine
PROC: 0D9W40Z Drainage of Peritoneum with Drainage Device, Percutaneous Endoscopic Approach (ICD-10-PCS; 2021-03-09)
PROC: 3E0333Z Introduction of Anti-inflammatory into Peripheral Vein, Percutaneous Approach (ICD-10-PCS; 2021-03-09)
PROC: 8E0ZXY6 Isolation (ICD-10-PCS; 2021-03-10)
PROC: 0DBN0ZZ Excision of Sigmoid Colon, Open Approach (ICD-10-PCS; principal; 2021-03-19)
PROC: 0D1B0Z4 Bypass Ileum to Cutaneous, Open Approach (ICD-10-PCS; 2021-03-19)
PROC: 02HV33Z Insertion of Infusion Device into Superior Vena Cava, Percutaneous Approach (ICD-10-PCS; 2021-03-19)
PROC: 5A1945Z Respiratory Ventilation, 24-96 Consecutive Hours (ICD-10-PCS; 2021-03-19)
PROC: 0D9670Z Drainage of Stomach with Drainage Device, Via Natural or Artificial Opening (ICD-10-PCS; 2021-03-19)
PROC: 3E0T3BZ Introduction of Anesthetic Agent into Peripheral Nerves and Plexi, Percutaneous Approach (ICD-10-PCS; 2021-03-19)
PROC: 3E043XZ Introduction of Vasopressor into Central Vein, Percutaneous Approach (ICD-10-PCS; 2021-03-20)
PROC: 3E0G76Z Introduction of Nutritional Substance into Upper GI, Via Natural or Artificial Opening (ICD-10-PCS; 2021-03-20)
PROC: 3E0336Z Introduction of Nutritional Substance into Peripheral Vein, Percutaneous Approach (ICD-10-PCS; 2021-03-23)
DX: A41.9 Sepsis, unspecified organism (principal); K65.0 Generalized (acute) peritonitis; U07.1 COVID-19; J96.01 Acute respiratory failure with hypoxia; K57.20 Diverticulitis of large intestine with perforation and abscess without bleeding; N17.9 Acute kidney failure, unspecified; E87.2 Acidosis; K91.89 Other postprocedural complications and disorders of digestive system; K56.7 Ileus, unspecified; E87.3 Alkalosis; J98.11 Atelectasis; D62 Acute posthemorrhagic anemia; J90 Pleural effusion, not elsewhere classified; Z23 Encounter for immunization; R65.20 Severe sepsis without septic shock; I12.9 Hypertensive chronic kidney disease with stage 1 through stage 4 chronic kidney disease, or unspecified chronic kidney disease; E78.5 Hyperlipidemia, unspecified; I25.10 Atherosclerotic heart disease of native coronary artery without angina pectoris; F17.210 Nicotine dependence, cigarettes, uncomplicated; F12.10 Cannabis abuse, uncomplicated; E86.9 Volume depletion, unspecified; E66.9 Obesity, unspecified; N40.1 Benign prostatic hyperplasia with lower urinary tract symptoms; R39.11 Hesitancy of micturition; R73.9 Hyperglycemia, unspecified; K21.9 Gastro-esophageal reflux disease without esophagitis; T46.4X5A Adverse effect of angiotensin-converting-enzyme inhibitors, initial encounter; N18.30 Chronic kidney disease, stage 3 unspecified; D50.9 Iron deficiency anemia, unspecified; D63.1 Anemia in chronic kidney disease; E87.6 Hypokalemia; E83.42 Hypomagnesemia; Z78.1 Physical restraint status; I25.2 Old myocardial infarction; Z79.899 Other long term (current) drug therapy; Z79.82 Long term (current) use of aspirin; Z79.02 Long term (current) use of antithrombotics/antiplatelets; Z90.89 Acquired absence of other organs; Z98.890 Other specified postprocedural states; Z68.26 Body mass index [BMI] 26.0-26.9, adult; Z91.041 Radiographic dye allergy status; Z95.5 Presence of coronary angioplasty implant and graft
CPT/HCPCS: 0240U; 36415; 36416; 71045; 74018; 74176; 74177; 80048; 80053; 80061; 80069; 81001; 82550; 82570; 82728; 82805; 83036; 83540; 83550; 83605; 83690; 83735; 83880; 84100; 84134; 84156; 84300; 84484; 84540; 85025; 85379; 85610; 85730; 86140; 87040; 87070; 87086; 87205; 88307; 90471; 90732; 93005; 94002; 94003; 96365; 96375; C1751; C9113; G0009; J0360; J0694; J1100; J1650; J2175; J2270; J2370; J2405; J2543; J2550; J2704; J2916; J3010; J3475; J3480; J3490; J7042; J7050; J7070; J7120; P9045; P9047; Q9967; S0020; S0028

== ENCOUNTER 2021-05-07 16:05 | Inpatient (IN) | payer OTHER, SELFPAY ==
[2021-05-07 17:08] LABS: Hemoglobin 16.3 g/dL (14.0-18.0); Mean Corpuscular Hemoglobin 28.4 pg (27.0-31.0); Mean Platelet Volume 7.7 fL (7.4-10.4); Platelet Count 317 thou/uL (130-400); RBC Distribution Width 13.2 % (11.5-14.5); Red Blood Cell (RBC) Count 5.73 mill/uL (4.70-6.10); White Blood Cell (WBC) Count 19.9 thou/uL (4.8-10.8)
[2021-05-07 17:29] LABS: ALT (SGPT) 14 U/L (8-55); AST (SGOT) 11 U/L (5-34); Albumin 4.6 g/dL (3.5-5.0); Alkaline Phosphatase 116 U/L (40-110); Anion Gap 25 mmol/L (10-20); BUN (Urea Nitrogen) 53 mg/dL (8.4-25.7); Bilirubin, Total 0.5 mg/dL (0.2-1.2); Calc. Creatinine Clearance 0 mL/min (70-130); Calcium 10.4 mg/dL (7.8-10.44); Carbon Dioxide 16 mmol/L (22-29); Chloride 101 mmol/L (98-107); Globulin 4.5 g/dL (2.4-3.5); Glucose 133 mg/dL (70-105); Potassium 5.4 mmol/L (3.5-5.1); Protein, Total 9.1 g/dL (6.0-8.3); Sodium 137 mmol/L (136-145)
[2021-05-07 17:31] LABS: Band 5 % (5-11); Lymphocytes 32 % (21-51); MDiff Complete? YES; Monocytes 5 % (0-10); Neutrophil 58 % (42-75); Platelet Morphology Comment Appears Adequate; RBC Morphology Normal
[2021-05-07 18:21] LABS: Analyzer IN Cardio ER; Base Excess -12.7 mEq/L (-2.0 to +3.0); Calcium, Ionized (venous) 0.97 mmol/L (1.16-1.32); Chloride (VBG) 104 mmol/L (98-106); Hemoglobin (Hb) 16.7 g/dL (13.1-17.2); Potassium (VBG) 5.64 mmol/L (3.70-5.30); Sodium 132.8 mmol/L (133-146); pH (venous) 7.29 (7.32-7.43)
[2021-05-07 18:23] LABS: Actual Bicarbonate (HCO3v) 12 mEq/L (22-28)
[2021-05-07 18:38] LABS: Magnesium 1.9 mg/dL (1.6-2.6)
[2021-05-07] MEDS ORDERED: Cefepime 2 GM VIAL ONE ×2 (18:52→18:55)
[2021-05-07 19:25] LABS: INR-International Normal Ratio 1.2; Prothrombin Time 15.4 sec (12.0-14.7)
[2021-05-07 19:26] LABS: PTT 30.3 sec (22.9-36.1)
[2021-05-07] MEDS ORDERED: Calcium Gluc 4.6 MEQ/10 ML (100 MG/ML) ONE (19:53)
[2021-05-07] MEDS ORDERED: Sodium Bicarb 50 MEQ/50 ML Abboject 8.4% SYRINGE ONE (19:53)
[2021-05-07] MEDS ORDERED: Vancomycin 1 GM/200 ML BAG ONE (19:53)
[2021-05-07 20:19] LABS: Anion Gap 20 mmol/L (10-20); BUN (Urea Nitrogen) 49 mg/dL (8.4-25.7); Calc. Creatinine Clearance 0 mL/min (70-130); Calcium 8.4 mg/dL (7.8-10.44); Carbon Dioxide 14 mmol/L (22-29); Chloride 110 mmol/L (98-107); Glucose 101 mg/dL (70-105); Sodium 139 mmol/L (136-145)
[2021-05-07] MEDS ORDERED: Sodium Chloride 0.9% 1,000 ML IV SCH (21:30)
[2021-05-07] MEDS: Sodium Bicarbonate 150 MEQ in Dextrose 5% in Water 1,000 ML IV SCH (23:26)
[2021-05-07] MEDS ORDERED: Enoxaparin Sodium 80 MG/0.8 ML SYRINGE ONE (23:39)
[2021-05-08] MEDS ORDERED: Pharmacy to Dose VANC AND CEFEPIME IVPB PRN (00:29)
[2021-05-08] MEDS ORDERED: Acetaminophen 325 MG TAB PO PRN (00:45)
[2021-05-08 07:37] LABS: Anion Gap 15 mmol/L (10-20); BUN (Urea Nitrogen) 50 mg/dL (8.4-25.7); BUN/Creatinine Ratio 6.78; Calc. Creatinine Clearance 12 mL/min (70-130); Calcium 8.5 mg/dL (7.8-10.44); Carbon Dioxide 18 mmol/L (22-29); Chloride 109 mmol/L (98-107); Glucose 115 mg/dL (70-105); Magnesium 1.5 mg/dL (1.6-2.6); Potassium 3.9 mmol/L (3.5-5.1); Sodium 138 mmol/L (136-145)
[2021-05-08 08:09] LABS: #Basophils 0.1 thou/uL (0.0-0.2); #Eosinphils 0.1 thou/uL (0.0-0.7); #Lymphocytes 2.7 thou/uL (1.20-3.40); #Monocytes 1.2 thou/uL (0.11-0.59); #Neutrophils 8.6 thou/uL (1.40-6.50); %Basophils 0.5 % (0.0-1.0); %Eosinophils 0.9 % (0.0-10.0); %Lymphocytes 21.3 % (21.0-51.0); %Monocytes 9.5 % (0.0-10.0); %Neutrophils 67.7 % (42.0-75.0); Hemoglobin 11.6 g/dL (14.0-18.0); Mean Corpuscular HGB CONC 33.3 g/dL (32.0-36.0); Mean Platelet Volume 7.9 fL (7.4-10.4); Platelet Count 186 thou/uL (130-400); White Blood Cell (WBC) Count 12.7 thou/uL (4.8-10.8)
[2021-05-08] MEDS ORDERED: Pantoprazole 40 MG VIAL ONE (08:18)
[2021-05-08] MEDS: Pantoprazole 40 MG VIAL IVP SCH (08:29)
[2021-05-08] MEDS: Sodium Chloride 0.9% (PF) 10 ML VIAL FS PRN (08:29)
[2021-05-08 10:22] VITALS: BMI 25.1
[2021-05-08] MEDS ORDERED: Magnesium Sulfate 4 GM in Sodium Chloride 0.9% 250 ML 250 ML IVPB SCH (11:00)
[2021-05-08] MEDS ORDERED: Lactated Ringer's 1,000 ML IV SCH (12:00)
[2021-05-08] MEDS ORDERED: VANCOMYCIN 1.25 GM/250 ML BAG 1.25 GM in Premix Bag 1 BAG IVPB SCH (14:45)
[2021-05-08 16:22] LABS: SARS-CoV-2 NAA Rapid Test Not Detected (NotDetected)
[2021-05-08 18:50] LABS: Bacteria/HPF 1+ HPF (None Seen); Bilirubin Negative (Negative); Blood, Urine Trace (Negative); Clarity Turbid (Clear); Glucose, Urine (Dipstick) 50 mg/dL (Negative); Ketone, Urine Negative (Negative); Leukocyte Negative Leu/uL (Negative); Nitrite Negative (Negative); Protein, Urine (Dipstick) 50 mg/dL (Neg-Trace); RBC/HPF 0-3 HPF (0-3); Specific Gravity, Urine 1.013 (1.002-1.036); Squamous Epithelial None Seen HPF (0-3); Urine Culture Reflex Yes Yes; Urobilinogen Normal mg/dL (Less than 2); WBC/HPF 0-3 HPF (0-3); pH, Urine 5.5 (5.0-9.0)
[2021-05-08 19:34] LABS: Vancomycin, Random 15.5 ug/mL (See Comment)
[2021-05-08] MEDS ORDERED: Cefepime 1 GM in Sodium Chloride 0.9% 100 ML IVPB SCH (20:00)
[2021-05-08] MEDS ORDERED: Vancomycin HCl 500 MG in Sodium Chloride 0.9% 100 ML IVPB SCH (21:00)
[2021-05-09] MEDS: Sodium Bicarbonate 150 MEQ in Dextrose 5% in Water 1,000 ML IV SCH (01:51)
[2021-05-09 04:45] LABS: #Eosinphils 0.2 thou/uL (0.0-0.7); #Lymphocytes 3.5 thou/uL (1.20-3.40); #Neutrophils 6.3 thou/uL (1.40-6.50); %Basophils 0.4 % (0.0-1.0); %Eosinophils 1.8 % (0.0-10.0); %Lymphocytes 31.8 % (21.0-51.0); %Monocytes 9.1 % (0.0-10.0); %Neutrophils 56.8 % (42.0-75.0); Hemoglobin 10.3 g/dL (14.0-18.0); Mean Corpuscular HGB CONC 35.5 g/dL (32.0-36.0); Mean Corpuscular Hemoglobin 30.6 pg (27.0-31.0); Mean Corpuscular Volume 86.1 fL (78.0-98.0); Mean Platelet Volume 7.8 fL (7.4-10.4); Platelet Count 172 thou/uL (130-400); RBC Distribution Width 12.7 % (11.5-14.5); Red Blood Cell (RBC) Count 3.36 mill/uL (4.70-6.10); White Blood Cell (WBC) Count 11.1 thou/uL (4.8-10.8)
[2021-05-09 05:10] LABS: Anion Gap 11 mmol/L (10-20); BUN (Urea Nitrogen) 37 mg/dL (8.4-25.7); Calc. Creatinine Clearance 28 mL/min (70-130); Carbon Dioxide 27 mmol/L (22-29); Chloride 105 mmol/L (98-107); Glucose 103 mg/dL (70-105); Potassium 3.3 mmol/L (3.5-5.1); Sodium 140 mmol/L (136-145)
[2021-05-09] MEDS ORDERED: Potassium Chloride 20 MEQ TAB PO SCH (06:00)
[2021-05-09] MEDS: Lactated Ringer's 1,000 ML IV SCH ×3 (07:14→22:08)
[2021-05-09] MEDS: Heparin 5,000 UNITS/ML VIAL SC SCH ×3 (08:12→22:08)
[2021-05-09] MEDS: Sodium Chloride 0.9% (PF) 10 ML VIAL FS PRN (08:12)
[2021-05-09] MEDS: Pantoprazole 40 MG VIAL IVP SCH (08:12)
[2021-05-09] MEDS: Ondansetron PF 4 MG/2 ML Vial IVP PRN (15:10)
[2021-05-09 20:10] LABS: Vancomycin, Random 9.6 ug/mL (See Comment)
[2021-05-10 04:41] LABS: #Basophils 0.1 thou/uL (0.0-0.2); #Eosinphils 0.3 thou/uL (0.0-0.7); #Lymphocytes 3.3 thou/uL (1.20-3.40); #Monocytes 0.8 thou/uL (0.11-0.59); %Basophils 0.7 % (0.0-1.0); %Eosinophils 3.3 % (0.0-10.0); %Lymphocytes 34.8 % (21.0-51.0); %Monocytes 8.8 % (0.0-10.0); %Neutrophils 52.4 % (42.0-75.0); Mean Corpuscular HGB CONC 33.1 g/dL (32.0-36.0); Mean Corpuscular Hemoglobin 29.3 pg (27.0-31.0); Mean Corpuscular Volume 88.6 fL (78.0-98.0); Mean Platelet Volume 7.9 fL (7.4-10.4); Platelet Count 169 thou/uL (130-400); RBC Distribution Width 12.5 % (11.5-14.5); Red Blood Cell (RBC) Count 3.41 mill/uL (4.70-6.10); White Blood Cell (WBC) Count 9.6 thou/uL (4.8-10.8)
[2021-05-10 05:04] LABS: Anion Gap 11 mmol/L (10-20); BUN (Urea Nitrogen) 25 mg/dL (8.4-25.7); Calc. Creatinine Clearance 50 mL/min (70-130); Calcium 8.3 mg/dL (7.8-10.44); Carbon Dioxide 26 mmol/L (22-29); Chloride 106 mmol/L (98-107); Glucose 119 mg/dL (70-105); Potassium 3.4 mmol/L (3.5-5.1); Sodium 140 mmol/L (136-145)
[2021-05-10] MEDS: Lactated Ringer's 1,000 ML IV SCH ×2 (05:21→14:45)
[2021-05-10] MEDS: Potassium Chloride 20 MEQ TAB PO SCH ×2 (07:12→14:44)
[2021-05-10 07:17] LABS: Magnesium 1.7 mg/dL (1.6-2.6)
[2021-05-10 07:18] LABS: Phosphorus 3.1 mg/dL (2.3-4.7)
[2021-05-10] MEDS: Heparin 5,000 UNITS/ML VIAL SC SCH ×3 (08:28→21:01)
[2021-05-10] MEDS: Pantoprazole 40 MG VIAL IVP SCH (08:29)
[2021-05-10] MEDS ORDERED: Magnesium 2 GM/50 ML 2 GM in Premix Bag 1 BAG IVPB SCH (10:00)
[2021-05-10] MEDS: Ondansetron PF 4 MG/2 ML Vial IVP PRN (21:00)
[2021-05-11] MEDS: Lactated Ringer's 1,000 ML IV SCH ×2 (01:38→09:37)
[2021-05-11 05:08] LABS: Anion Gap 12 mmol/L (10-20); BUN (Urea Nitrogen) 14 mg/dL (8.4-25.7); Calc. Creatinine Clearance 60 mL/min (70-130); Calcium 8.6 mg/dL (7.8-10.44); Carbon Dioxide 25 mmol/L (22-29); Chloride 107 mmol/L (98-107); Glucose 105 mg/dL (70-105); Sodium 140 mmol/L (136-145)
[2021-05-11] MEDS ORDERED: FLU VACC QS2021-22(6MOS UP)/PF 60 MCG/0.5 ML SYRINGE IM ONE (09:00)
[2021-05-11] MEDS: Heparin 5,000 UNITS/ML VIAL SC SCH (09:37)
[2021-05-11] MEDS: Pantoprazole 40 MG VIAL IVP SCH (10:14)
[2021-05-11 11:28] VITALS: BP 155/80; TEMP 97.6
== END 2021-05-11 12:11 | disposition home or self-care (01) | DRG 683 ==
LOC: ERS 16:05 → ERHOLD 20:33 → 2NO 05-08 16:03
PROVIDERS: ADMIT Internal Medicine; ATTEND Family Medicine
DX: N17.9 Acute kidney failure, unspecified (principal); E87.2 Acidosis; E86.0 Dehydration; Z20.822 Contact with and (suspected) exposure to COVID-19; F17.210 Nicotine dependence, cigarettes, uncomplicated; I10 Essential (primary) hypertension; I25.10 Atherosclerotic heart disease of native coronary artery without angina pectoris; K21.9 Gastro-esophageal reflux disease without esophagitis; G62.9 Polyneuropathy, unspecified; E87.5 Hyperkalemia; E86.1 Hypovolemia; E87.6 Hypokalemia; E83.42 Hypomagnesemia; Z90.09 Acquired absence of other part of head and neck; Z91.013 Allergy to seafood; Z79.899 Other long term (current) drug therapy; Z79.51 Long term (current) use of inhaled steroids; Z93.2 Ileostomy status
CPT/HCPCS: 36415; 71045; 71250; 74177; 80048; 80053; 80069; 80202; 81001; 82550; 82805; 83605; 83690; 83735; 83880; 84100; 84484; 85025; 85610; 85730; 86850; 86900; 86901; 87040; 87086; 93005; 94760; C9113; J0610; J0692; J1644; J1650; J2405; J3370; J3475; J3490; J7050; J7070; J7120; U0002

== ENCOUNTER 2021-07-26 10:58 | Outpatient (CLI) | payer OTHER | END 2021-07-26 10:59 | disposition home or self-care (01) | LOC: RAD 10:58 | PROVIDERS: ATTEND Specialist | DX: K57.90 Diverticulosis of intestine, part unspecified, without perforation or abscess without bleeding (principal) | CPT/HCPCS: 74280 ==

== ENCOUNTER 2021-12-10 11:52 | Emergency (ER) | payer SELFPAY ==
[2021-12-10 12:27] LABS: Hemoglobin 15.6 g/dL (14.0-18.0); Mean Corpuscular Volume 87.4 fL (78.0-98.0); Mean Platelet Volume 7.1 fL (7.4-10.4); Platelet Count 166 thou/uL (130-400); RBC Distribution Width 13.7 % (11.5-14.5); Red Blood Cell (RBC) Count 5.58 mill/uL (4.70-6.10); White Blood Cell (WBC) Count 4.8 thou/uL (4.8-10.8)
[2021-12-10 12:42] LABS: ALT (SGPT) 17 U/L (8-55); AST (SGOT) 24 U/L (5-34); Albumin 3.6 g/dL (3.5-5.0); Alkaline Phosphatase 89 U/L (40-110); Anion Gap 14 mmol/L (10-20); BUN (Urea Nitrogen) 17 mg/dL (8.4-25.7); Bilirubin, Total 0.3 mg/dL (0.2-1.2); Calc. Creatinine Clearance 0 mL/min (70-130); Calcium 8.3 mg/dL (7.8-10.44); Carbon Dioxide 20 mmol/L (22-29); Chloride 110 mmol/L (98-107); Globulin 3.2 g/dL (2.4-3.5); Glucose 115 mg/dL (70-105); Lipase 62 U/L (8-78); Potassium 3.7 mmol/L (3.5-5.1); Protein, Total 6.8 g/dL (6.0-8.3); Sodium 140 mmol/L (136-145)
[2021-12-10 13:15] LABS: Band 1 % (5-11); Eosinophils 4 % (0-10); Lymphocytes 31 % (21-51); MDiff Complete? YES; Monocytes 14 % (0-10); Neutrophil 42 % (42-75); Platelet Morphology Comment Appears Adequate; Polychromasia SLIGHT = 2-3 cells (100X) (0-2/hpf); Reactive Lymphocytes 8 % (0-10)
[2021-12-10] MEDS ORDERED: Ketorolac Tromethamine 30 MG/ML VIAL ONE (13:17)
[2021-12-10] MEDS ORDERED: Aspirin Chewable 81 MG TAB ONE (13:17)
== END 2021-12-10 15:14 | disposition home or self-care (01) ==
LOC: ERS 11:52
DX: R07.89 Other chest pain (principal); R05.9 Cough, unspecified; Z20.822 Contact with and (suspected) exposure to COVID-19; I10 Essential (primary) hypertension; I25.2 Old myocardial infarction; F17.210 Nicotine dependence, cigarettes, uncomplicated; Z79.899 Other long term (current) drug therapy
CPT/HCPCS: 71045; 80053; 83690; 84484; 85025; 93005; 94760; 96374; J1885; U0003; U0005

== ENCOUNTER 2022-04-11 03:47 | Emergency (ER) | payer SELFPAY ==
[2022-04-11] MEDS ORDERED: Ondansetron PF 4 MG/2 ML Vial ONE (04:18)
[2022-04-11] MEDS ORDERED: Ketorolac Tromethamine 30 MG/ML VIAL ONE (04:18)
[2022-04-11 04:45] LABS: #Basophils 0.1 thou/uL (0.0-0.2); #Eosinphils 0.3 thou/uL (0.0-0.7); #Lymphocytes 3.4 thou/uL (1.20-3.40); #Neutrophils 7.9 thou/uL (1.40-6.50); %Basophils 0.5 % (0.0-1.0); %Eosinophils 2.4 % (0.0-10.0); %Lymphocytes 26.7 % (21.0-51.0); %Monocytes 7.6 % (0.0-10.0); %Neutrophils 62.8 % (42.0-75.0); Hemoglobin 17.3 g/dL (14.0-18.0); Mean Corpuscular HGB CONC 32.2 g/dL (32.0-36.0); Mean Corpuscular Hemoglobin 28.4 pg (27.0-31.0); Mean Corpuscular Volume 88.1 fL (78.0-98.0); Mean Platelet Volume 8.1 fL (7.4-10.4); Platelet Count 202 thou/uL (130-400); RBC Distribution Width 13.4 % (11.5-14.5); Red Blood Cell (RBC) Count 6.11 mill/uL (4.70-6.10); White Blood Cell (WBC) Count 12.6 thou/uL (4.8-10.8)
[2022-04-11 06:09] LABS: Chloride 107 mmol/L (98-107); Potassium 4.5 mmol/L (3.5-5.1); Sodium 134 mmol/L (136-145)
[2022-04-11 06:10] LABS: Globulin 3.6 g/dL (2.4-3.5); Glucose 113 mg/dL (70-105); Protein, Total 7.6 g/dL (6.0-8.3)
[2022-04-11 06:11] LABS: Anion Gap 11 mmol/L (10-20); Carbon Dioxide 21 mmol/L (22-29)
[2022-04-11 06:12] LABS: Bilirubin, Total 0.4 mg/dL (0.2-1.2)
[2022-04-11 06:13] LABS: Alkaline Phosphatase 104 U/L (40-110); Calc. Creatinine Clearance 0 mL/min (70-130); Estimated GFR 71
[2022-04-11 06:14] LABS: BUN (Urea Nitrogen) 17 mg/dL (8.4-25.7)
[2022-04-11 06:15] LABS: AST (SGOT) 15 U/L (5-34)
[2022-04-11 06:16] LABS: ALT (SGPT) 12 U/L (8-55); Lipase 65 U/L (8-78)
== END 2022-04-11 06:45 | disposition home or self-care (01) ==
LOC: ERS 03:47
DX: K76.9 Liver disease, unspecified (principal); I10 Essential (primary) hypertension; F17.210 Nicotine dependence, cigarettes, uncomplicated
CPT/HCPCS: 36415; 71045; 76705; 80053; 83690; 85025; 96374; 96375; J1885; J2405

== ENCOUNTER 2023-02-02 07:46 | Emergency (ER) | payer OTHER ==
[2023-02-02] MEDS ORDERED: Morphine 4 MG/ML VIAL ONE (09:10)
[2023-02-02] MEDS ORDERED: Ondansetron PF 4 MG/2 ML Vial ONE (09:10)
[2023-02-02 09:31] LABS: #Basophils 0.1 thou/uL (0.0-0.2); #Eosinphils 0.3 thou/uL (0.0-0.7); #Monocytes 1.1 thou/uL (0.11-0.59); #Neutrophils 9.7 thou/uL (1.40-6.50); %Basophils 0.7 % (0.0-1.0); %Eosinophils 1.9 % (0.0-10.0); %Lymphocytes 25.6 % (21.0-51.0); %Monocytes 7.1 % (0.0-10.0); %Neutrophils 64.5 % (42.0-75.0); Hemoglobin 16.8 g/dL (14.0-18.0); Mean Corpuscular Hemoglobin 28.8 pg (27.0-31.0); Mean Corpuscular Volume 87.2 fl (78.0-98.0); Mean Platelet Volume 9.8 fL (7.4-10.4); Platelet Count 266 10x3/uL (130-400); RBC Distribution Width 14.2 % (11.5-14.5); Red Blood Cell (RBC) Count 5.84 mill/uL (4.70-6.10)
[2023-02-02 09:53] LABS: ALT (SGPT) 16 U/L (8-55); AST (SGOT) 14 U/L (5-34); Albumin 3.9 g/dL (3.4-4.8); Alkaline Phosphatase 93 U/L (40-110); Anion Gap 12 mmol/L (10-20); BUN (Urea Nitrogen) 10 mg/dL (8.4-25.7); Bilirubin, Total 0.2 mg/dL (0.2-1.2); Calc. Creatinine Clearance 0 mL/min (70-130); Calcium 8.8 mg/dL (7.8-10.44); Carbon Dioxide 22 mmol/L (23-31); Chloride 109 mmol/L (98-107); Estimated GFR 59; Globulin 2.7 g/dL (2.4-3.5); Glucose 91 mg/dL (80-115); Lipase 63 U/L (8-78); Potassium 3.8 mmol/L (3.5-5.1); Protein, Total 6.6 g/dL (5.8-8.1); Sodium 139 mmol/L (136-145)
[2023-02-02] MEDS ORDERED: Iopamidol-370 76% 500 ML MDV (1 ML CHARGE) ONE (11:45)
== END 2023-02-02 10:58 | disposition home or self-care (01) ==
LOC: ERS 07:46
DX: R10.31 Right lower quadrant pain (principal); I10 Essential (primary) hypertension; F17.210 Nicotine dependence, cigarettes, uncomplicated
CPT/HCPCS: 36415; 71045; 74177; 80053; 83690; 84484; 85025; 93005; 94760; 96374; 96375; J2270; J2405; Q9967

== ENCOUNTER 2023-06-30 10:24 | Emergency (ER) | payer OTHER, SELFPAY ==
[2023-06-30 12:38] LABS: #Basophils 0.1 thou/uL (0.0-0.2); #Eosinphils 0.3 thou/uL (0.0-0.7); #Monocytes 0.7 thou/uL (0.11-0.59); #Neutrophils 7.3 thou/uL (1.40-6.50); %Basophils 0.6 % (0.0-1.0); %Eosinophils 2.5 % (0.0-10.0); %Lymphocytes 21.7 % (21.0-51.0); %Monocytes 6.9 % (0.0-10.0); Hematocrit 51.5 % (42.0-52.0); Hemoglobin 17.4 g/dL (14.0-18.0); Mean Corpuscular HGB CONC 33.8 g/dL (32.0-36.0); Mean Corpuscular Hemoglobin 28.2 pg (27.0-31.0); Mean Corpuscular Volume 83.6 fl (78.0-98.0); Mean Platelet Volume 9.3 fL (7.4-10.4); Platelet Count 263 10x3/uL (130-400); RBC Distribution Width 13.4 % (11.5-14.5); Red Blood Cell (RBC) Count 6.16 mill/uL (4.70-6.10); White Blood Cell (WBC) Count 10.7 10x3/uL (4.8-10.8)
[2023-06-30 13:06] LABS: ALT (SGPT) 13 U/L (8-55); AST (SGOT) 15 U/L (5-34); Albumin 3.9 g/dL (3.4-4.8); Alkaline Phosphatase 87 U/L (40-110); Anion Gap 15 mmol/L (10-20); BUN (Urea Nitrogen) 20 mg/dL (8.4-25.7); Bilirubin, Total 0.6 mg/dL (0.2-1.2); Calc. Creatinine Clearance 0 mL/min (70-130); Calcium 8.9 mg/dL (7.8-10.44); Carbon Dioxide 19 mmol/L (23-31); Chloride 98 mmol/L (98-107); Estimated GFR 55; Globulin 4.1 g/dL (2.4-3.5); Glucose 152 mg/dL (80-115); Lipase 29 U/L (8-78); Potassium 3.2 mmol/L (3.5-5.1); Sodium 129 mmol/L (136-145)
[2023-06-30 13:12] LABS: Troponin I 0.015 ng/mL (< 0.028)
[2023-06-30 13:28] LABS: SARS-CoV-2 NAA Rapid Test Not Detected (NotDetected)
== END 2023-06-30 13:52 | disposition home or self-care (01) ==
LOC: ERS 10:24
DX: B34.9 Viral infection, unspecified (principal); E87.6 Hypokalemia; I10 Essential (primary) hypertension; F17.210 Nicotine dependence, cigarettes, uncomplicated
CPT/HCPCS: 71045; 80053; 83690; 84484; 85025; 93005; 96360

== ENCOUNTER 2023-08-15 14:32 | Inpatient (IN) | payer OTHER, SELFPAY ==
[2023-08-15 15:28] LABS: #Basophils 0.1 thou/uL (0.0-0.2); #Eosinphils 0.1 thou/uL (0.0-0.7); #Monocytes 0.7 thou/uL (0.11-0.59); #Neutrophils 6.8 thou/uL (1.40-6.50); %Basophils 0.8 % (0.0-1.0); %Eosinophils 1.2 % (0.0-10.0); %Lymphocytes 26.8 % (21.0-51.0); %Monocytes 6.4 % (0.0-10.0); %Neutrophils 64.5 % (42.0-75.0); Hematocrit 53.6 % (42.0-52.0); Hemoglobin 17.6 g/dL (14.0-18.0); Mean Corpuscular HGB CONC 32.8 g/dL (32.0-36.0); Mean Corpuscular Hemoglobin 27.9 pg (27.0-31.0); Mean Corpuscular Volume 85.1 fl (78.0-98.0); Mean Platelet Volume 9.9 fL (7.4-10.4); Platelet Count 275 10x3/uL (130-400); RBC Distribution Width 14.9 % (11.5-14.5); White Blood Cell (WBC) Count 10.5 10x3/uL (4.8-10.8)
[2023-08-15 15:48] LABS: Acetaminophen Less than 10 mcg/mL (10.0-30.0); Alcohol Less than 10.0 mg/dL (Less than 10); Lipase 76 U/L (8-78); Magnesium 1.9 mg/dL (1.6-2.6); Salicylate Less than 8.0 mg/dL (15.0-30.0)
[2023-08-15 15:53] LABS: Troponin I 0.016 ng/mL (< 0.028)
[2023-08-15 15:55] LABS: ALT (SGPT) 18 U/L (8-55); AST (SGOT) 18 U/L (5-34); Albumin 4.3 g/dL (3.4-4.8); Alkaline Phosphatase 97 U/L (40-110); Anion Gap 15 mmol/L (10-20); BUN (Urea Nitrogen) 12 mg/dL (8.4-25.7); Bilirubin, Total 0.6 mg/dL (0.2-1.2); Calc. Creatinine Clearance 0 mL/min (70-130); Calcium 9.2 mg/dL (7.8-10.44); Carbon Dioxide 21 mmol/L (23-31); Chloride 107 mmol/L (98-107); Estimated GFR 64; Globulin 3.1 g/dL (2.4-3.5); Glucose 97 mg/dL (80-115); Potassium 4.1 mmol/L (3.5-5.1); Protein, Total 7.4 g/dL (5.8-8.1); Sodium 139 mmol/L (136-145)
[2023-08-15 16:20] LABS: Bacteria/HPF None Seen HPF (None Seen); Bilirubin Negative (Negative); Blood, Urine Negative (Negative); CAUTI Indications for Culture Alt mental st,lethar; Clarity Clear (Clear); Glucose, Urine (Dipstick) Normal (Negative); Ketone, Urine Negative (Negative); Leukocyte Negative Leu/uL (Negative); Nitrite Negative (Negative); Protein, Urine (Dipstick) Negative (Neg-Trace); RBC/HPF 0-3 HPF (0-3); Specific Gravity, Urine 1.003 (1.002-1.036); Squamous Epithelial None Seen HPF (0-3); Urobilinogen Normal mg/dL (Less than 2); WBC/HPF 0-3 HPF (0-3)
[2023-08-15 16:21] LABS: Urine Culture Reflex No No
[2023-08-15] MEDS ORDERED: hydrALAZINE 20 MG/ML VIAL SLOW IVP PRN (16:21)
[2023-08-15] MEDS ORDERED: Senokot S 8.6-50 MG TAB PO PRN (16:21)
[2023-08-15 16:24] LABS: Amphetamine Not Detected (NotDetected); Barbiturates Screen Not Detected (NotDetected); Benzodiazepine Screen Not Detected (NotDetected); Cocaine Metabolite Screen Not Detected (NotDetected); Methadone Not Detected (NotDetected); Methamphetamine Not Detected (NotDetected); Opiate Screen Not Detected (NotDetected); Oxycodone Screen Not Detected (NotDetected); Phencyclidine (PCP) Not Detected (NotDetected); THC/Cannabinoid Screen Not Detected (NotDetected); Tricyclic Screen Not Detected (NotDetected)
[2023-08-15] MEDS ORDERED: Ondansetron ODT 4 MG TAB SL PRN (22:45)
[2023-08-15] MEDS ORDERED: Ondansetron PF 4 MG/2 ML Vial IVP PRN (22:45)
[2023-08-15] MEDS: Atorvastatin Calcium 40 MG TAB PO SCH (23:36)
[2023-08-15] MEDS: Famotidine 20 MG TAB PO SCH (23:36)
[2023-08-16 01:04] VITALS: BMI 33.0
[2023-08-16] MEDS: Aspirin 81 mg Enteric Coated Tablet PO SCH (08:18)
[2023-08-16] MEDS ORDERED: hydrALAZINE 20 MG/ML VIAL SLOW IVP PRN (17:05)
[2023-08-16] MEDS: Acetaminophen 325 MG TAB PO PRN (19:34)
[2023-08-16] MEDS: Gabapentin 300 MG CAP PO SCH (21:06)
[2023-08-16] MEDS: Heparin 5,000 UNITS/ML VIAL SC SCH (21:09)
[2023-08-17 12:38] VITALS: BP 150/87; TEMP 97.8
== END 2023-08-17 15:04 | disposition home or self-care (01) | DRG 65 ==
LOC: ERS 14:32 → ERHOLD 15:54 → 2SE 22:42 → OBSVTOIN 08-16 17:02
PROVIDERS: ADMIT Family Medicine; ATTEND Internal Medicine
DX: I63.9 Cerebral infarction, unspecified (principal); G93.40 Encephalopathy, unspecified; I10 Essential (primary) hypertension; E78.5 Hyperlipidemia, unspecified; G62.9 Polyneuropathy, unspecified; F17.210 Nicotine dependence, cigarettes, uncomplicated; M10.9 Gout, unspecified; I67.89 Other cerebrovascular disease; K21.9 Gastro-esophageal reflux disease without esophagitis; I25.2 Old myocardial infarction; Z90.49 Acquired absence of other specified parts of digestive tract; Z98.890 Other specified postprocedural states; Z91.013 Allergy to seafood; Z79.51 Long term (current) use of inhaled steroids; Z79.899 Other long term (current) drug therapy
CPT/HCPCS: 36415; 70450; 70551; 71045; 80053; 80061; 80306; 80307; 81001; 83690; 83735; 84484; 85025; 93005; 93306; 93880; 96360; G0378; J1644

== ENCOUNTER 2023-12-12 19:06 | Emergency (ER) | payer MEDICARE, MEDICAID ==
[2023-12-12 19:42] LABS: #Basophils 0.04 10x3/uL (0.0-0.2); %Basophils 0.4 % (0.0-1.0); %Eosinophils 2.9 % (0.0-10.0); %Lymphocytes 24.6 % (21.0-51.0); %Monocytes 6.2 % (0.0-10.0); %Neutrophils 65.7 % (42.0-75.0); Hematocrit 50.2 % (42.0-52.0); Hemoglobin 16.5 g/dL (14.0-18.0); Mean Corpuscular HGB CONC 32.9 g/dL (32.0-36.0); Mean Corpuscular Hemoglobin 29.2 pg (27.0-31.0); Mean Corpuscular Volume 88.7 fL (78.0-98.0); Mean Platelet Volume 9.6 fL (7.4-10.4); Platelet Count 243 10x3/uL (130-400); Red Blood Cell (RBC) Count 5.66 mill/uL (4.70-6.10)
[2023-12-12 19:56] LABS: Anion Gap 16 mmol/L (10-20); BUN (Urea Nitrogen) 12 mg/dL (8.4-25.7); Bilirubin, Total 0.5 mg/dL (0.2-1.2); Calc. Creatinine Clearance 0 mL/min (70-130); Calcium 9.3 mg/dL (7.8-10.44); Carbon Dioxide 15 mmol/L (23-31); Chloride 112 mmol/L (98-107); Estimated GFR 54; Glucose 87 mg/dL (80-115); Potassium 4.1 mmol/L (3.5-5.1); Sodium 139 mmol/L (136-145)
[2023-12-12 19:57] LABS: ALT (SGPT) 22 U/L (8-55); AST (SGOT) 19 U/L (5-34); Albumin 3.5 g/dL (3.4-4.8); Alkaline Phosphatase 93 U/L (40-110); Globulin 3.6 g/dL (2.4-3.5); Lipase 32 U/L (8-78); Magnesium 1.7 mg/dL (1.6-2.6); Protein, Total 7.1 g/dL (5.8-8.1)
== END 2023-12-13 09:19 | disposition home or self-care (01) ==
LOC: ERS 19:06
DX: K94.00 Colostomy complication, unspecified (principal)
CPT/HCPCS: 36415; 80053; 83690; 83735; 84484; 85025; 93005

== ENCOUNTER 2024-01-29 13:28 | Outpatient (CLI) | payer OTHER, MEDICAID ==
[2024-01-29 14:23] LABS: #Eosinphils 0.22 10x3/uL (0.0-0.5); #Monocytes 0.63 10x3/uL (0.0-1.1); #Neutrophils 5.02 10x3/uL (1.5-8.4); %Basophils 1.1 % (0.0-2.0); %Eosinophils 2.4 % (0.0-6.0); %Monocytes 6.8 % (0.0-10.0); %Neutrophils 54.5 % (40.0-75.0); Hematocrit 50.2 % (38.8-50.0); Hemoglobin 16.9 g/dL (13.5-17.5); Mean Corpuscular HGB CONC 33.7 g/dL (32.0-36.0); Mean Corpuscular Hemoglobin 29.9 pg (27.0-33.0); Mean Corpuscular Volume 88.8 fL (81.2-95.1); Mean Platelet Volume 10.1 fL (7.4-10.4); Platelet Count 198 10x3/uL (150-450); RBC Distribution Width 13.8 % (11.5-14.5); Red Blood Cell (RBC) Count 5.65 10x6/uL (4.32-5.72); White Blood Cell (WBC) Count 9.2 10x3/uL (3.5-10.5)
[2024-01-29 14:54] LABS: Anion Gap 13 mmol/L (10-20); BUN (Urea Nitrogen) 15 mg/dL (8.4-25.7); Calc. Creatinine Clearance 0 mL/min (70-130); Calcium 8.8 mg/dL (7.8-10.44); Carbon Dioxide 17 mmol/L (23-31); Chloride 113 mmol/L (98-107); Estimated GFR 61; Glucose 102 mg/dL (80-115); Potassium 4.4 mmol/L (3.5-5.1); Sodium 139 mmol/L (136-145)
[2024-01-29 20:12] LABS: Hemoglobin A1c 5.8 % (4.0-6.0)
== END 2024-01-29 13:29 | disposition home or self-care (01) ==
LOC: LABBT 13:28
PROVIDERS: ATTEND Specialist
DX: Z01.818 Encounter for other preprocedural examination (principal); K43.5 Parastomal hernia without obstruction or gangrene; Z93.2 Ileostomy status
CPT/HCPCS: 71046; 80048; 83036; 85025; 93005; 93010

== ENCOUNTER 2024-03-15 18:40 | Emergency (ER) | payer OTHER, MEDICAID | END 2024-03-15 20:47 | disposition left against medical advice (07) | LOC: ERS 18:40 | DX: K62.9 Disease of anus and rectum, unspecified (principal) | CPT/HCPCS: 99281 ==

== ENCOUNTER 2025-02-09 23:57 | Inpatient (IN) | payer OTHER, MEDICAID ==
[2025-02-10 00:54] LABS: #Basophils 0.07 10x3/uL (0.0-0.2); #Eosinophils 0.19 10x3/uL (0.0-0.7); #Monocytes 0.63 10x3/uL (0.11-0.59); #Neutrophils 6.26 10x3/uL (1.40-6.50); %Basophils 0.7 % (0.0-1.0); %Eosinophils 1.9 % (0.0-10.0); %Lymphocytes 29.3 % (21.0-51.0); %Monocytes 6.2 % (0.0-10.0); %Neutrophils 61.6 % (42.0-75.0); Hematocrit 38.1 % (42.0-52.0); Hemoglobin 11.9 g/dL (14.0-18.0); Mean Corpuscular Hemoglobin 24.4 pg (27.0-31.0); Mean Corpuscular Volume 78.1 fL (78.0-98.0); Platelet Count 331 10x3/uL (130-400); Red Blood Cell (RBC) Count 4.88 mill/uL (4.70-6.10); White Blood Cell (WBC) Count 10.15 10x3/uL (4.8-10.8)
[2025-02-10] MEDS ORDERED: Acetaminophen 500 MG TAB ONE (01:02)
[2025-02-10 01:04] LABS: ALT (SGPT) 10 U/L (Less than 45); AST (SGOT) 17 U/L (11-34); Albumin 3.6 g/dL (3.1-4.5); Alkaline Phosphatase 101 U/L (40-110); Anion Gap 14 mmol/L (10-20); BUN (Urea Nitrogen) 15 mg/dL (8.4-25.7); Bilirubin, Total 0.4 mg/dL (0.3-1.2); Calc. Creatinine Clearance 0 mL/min (70-130); Calcium 8.7 mg/dL (7.8-10.44); Carbon Dioxide 21 mmol/L (23-31); Chloride 106 mmol/L (98-107); Globulin 3.7 g/dL (2.4-3.5); Glucose 141 mg/dL (80-115); Potassium 3.3 mmol/L (3.5-5.1); Sodium 138 mmol/L (136-145)
[2025-02-10] MEDS ORDERED: VANCOMYCIN 2 GRAM/400 ML BAG ONE (01:22)
[2025-02-10] MEDS ORDERED: Pharmacy to Dose: VANC IVPB PRN (04:36)
[2025-02-10 05:18] VITALS: BMI 27.3
[2025-02-10] MEDS: HYDROcodone/Acetaminophen 7.5/325 mg Tablet PO PRN (05:55)
[2025-02-10] MEDS: Pantoprazole 40 MG DR.TAB PO SCH (09:29)
[2025-02-10] MEDS: Gabapentin 400 MG CAP PO SCH (09:29)
[2025-02-10] MEDS: Carvedilol 25 MG TAB PO SCH (09:30)
[2025-02-10] MEDS: Losartan 25 MG TAB PO SCH (09:30)
[2025-02-10] MEDS: PNEUMOC 20-VAL CONJ-DIP CRM/PF 0.5 ML SYRINGE IM ONE (09:30)
[2025-02-10] MEDS ORDERED: Iopamidol-370 76% 500 ML MDV (1 ML CHARGE) ONE (11:24)
[2025-02-10] MEDS: Vancomycin 1.5 GM / NS 500 ML VIAL-2-BAG IVPB SCH (17:16)
[2025-02-11 05:44] LABS: #Basophils 0.04 10x3/uL (0.0-0.2); #Eosinophils 0.33 10x3/uL (0.0-0.7); #Monocytes 0.57 10x3/uL (0.11-0.59); #Neutrophils 4.10 10x3/uL (1.40-6.50); %Basophils 0.5 % (0.0-1.0); %Eosinophils 4.3 % (0.0-10.0); %Lymphocytes 34.8 % (21.0-51.0); %Monocytes 7.4 % (0.0-10.0); %Neutrophils 52.9 % (42.0-75.0); Hematocrit 33.5 % (42.0-52.0); Hemoglobin 10.2 g/dL (14.0-18.0); Mean Corpuscular Hemoglobin 24.1 pg (27.0-31.0); Mean Corpuscular Volume 79.2 fL (78.0-98.0); Platelet Count 253 10x3/uL (130-400); Red Blood Cell (RBC) Count 4.23 mill/uL (4.70-6.10); White Blood Cell (WBC) Count 7.75 10x3/uL (4.8-10.8)
[2025-02-11 06:07] LABS: Vancomycin, Random 22.6 ug/mL (See Comment)
[2025-02-11 06:10] LABS: ALT (SGPT) Less than 7 U/L (Less than 45); AST (SGOT) 13 U/L (11-34); Albumin 2.8 g/dL (3.1-4.5); Alkaline Phosphatase 71 U/L (40-110); Anion Gap 10 mmol/L (10-20); BUN (Urea Nitrogen) 15 mg/dL (8.4-25.7); Bilirubin, Total 0.3 mg/dL (0.3-1.2); Calc. Creatinine Clearance 64 mL/min (70-130); Calcium 8.2 mg/dL (7.8-10.44); Carbon Dioxide 22 mmol/L (23-31); Chloride 110 mmol/L (98-107); Globulin 3.2 g/dL (2.4-3.5); Glucose 85 mg/dL (80-115); Potassium 3.8 mmol/L (3.5-5.1); Sodium 138 mmol/L (136-145)
[2025-02-11] MEDS ORDERED: fentaNYL PF 100 MCG/2 ML SYRINGE ONE (09:10)
[2025-02-11] MEDS ORDERED: PROPOFOL 20 ML ONE (09:10)
[2025-02-11] MEDS ORDERED: Lidocaine 1% PF 5 ML VIAL ONE (09:10)
[2025-02-11] MEDS ORDERED: PHENYLEPHRINE-NS 100 MCG/ML 10 ML SYRINGE ONE (10:23)
[2025-02-11] MEDS ORDERED: Ondansetron PF 4 MG/2 ML Vial ONE (10:25)
[2025-02-11] MEDS ORDERED: HYDROmorphone 0.5 MG/0.5 ML SYRINGE ONE (10:57)
[2025-02-11] MEDS: Vancomycin 1 GM in Premix 1 BAG IVPB SCH (21:03)
[2025-02-12 08:00] LABS: #Basophils 0.03 10x3/uL (0.0-0.2); #Eosinophils 0.03 10x3/uL (0.0-0.7); #Monocytes 0.65 10x3/uL (0.11-0.59); #Neutrophils 4.80 10x3/uL (1.40-6.50); %Basophils 0.4 % (0.0-1.0); %Eosinophils 0.4 % (0.0-10.0); %Lymphocytes 30.4 % (21.0-51.0); %Monocytes 8.2 % (0.0-10.0); %Neutrophils 60.2 % (42.0-75.0); Hematocrit 33.1 % (42.0-52.0); Hemoglobin 10.4 g/dL (14.0-18.0); Mean Corpuscular Hemoglobin 24.7 pg (27.0-31.0); Mean Corpuscular Volume 78.6 fL (78.0-98.0); Platelet Count 283 10x3/uL (130-400); Red Blood Cell (RBC) Count 4.21 mill/uL (4.70-6.10); White Blood Cell (WBC) Count 7.96 10x3/uL (4.8-10.8)
[2025-02-12 08:23] LABS: Vancomycin, Random 18.0 ug/mL (See Comment)
[2025-02-12 08:25] LABS: ALT (SGPT) 8 U/L (Less than 45); AST (SGOT) 16 U/L (11-34); Albumin 3.2 g/dL (3.1-4.5); Alkaline Phosphatase 74 U/L (40-110); Anion Gap 13 mmol/L (10-20); BUN (Urea Nitrogen) 15 mg/dL (8.4-25.7); Bilirubin, Total 0.3 mg/dL (0.3-1.2); Calc. Creatinine Clearance 63 mL/min (70-130); Calcium 8.7 mg/dL (7.8-10.44); Carbon Dioxide 20 mmol/L (23-31); Chloride 112 mmol/L (98-107); Globulin 3.7 g/dL (2.4-3.5); Glucose 115 mg/dL (80-115); Potassium 3.8 mmol/L (3.5-5.1); Sodium 141 mmol/L (136-145)
[2025-02-12] MEDS: Melatonin 3 MG TAB PO PRN (20:29)
[2025-02-12] MEDS: Vancomycin 1 GM in Premix 1 BAG IVPB SCH (20:30)
[2025-02-13 05:16] LABS: #Basophils 0.06 10x3/uL (0.0-0.2); #Eosinophils 0.38 10x3/uL (0.0-0.7); #Monocytes 0.51 10x3/uL (0.11-0.59); #Neutrophils 2.81 10x3/uL (1.40-6.50); %Basophils 0.8 % (0.0-1.0); %Eosinophils 5.2 % (0.0-10.0); %Lymphocytes 48.7 % (21.0-51.0); %Monocytes 6.9 % (0.0-10.0); %Neutrophils 38.1 % (42.0-75.0); Hematocrit 34.4 % (42.0-52.0); Hemoglobin 10.3 g/dL (14.0-18.0); Mean Corpuscular Hemoglobin 23.9 pg (27.0-31.0); Mean Corpuscular Volume 79.8 fL (78.0-98.0); Platelet Count 275 10x3/uL (130-400); Red Blood Cell (RBC) Count 4.31 mill/uL (4.70-6.10); White Blood Cell (WBC) Count 7.37 10x3/uL (4.8-10.8)
[2025-02-13 05:33] LABS: ALT (SGPT) 12 U/L (Less than 45); AST (SGOT) 18 U/L (11-34); Albumin 3.2 g/dL (3.1-4.5); Alkaline Phosphatase 64 U/L (40-110); Anion Gap 14 mmol/L (10-20); BUN (Urea Nitrogen) 15 mg/dL (8.4-25.7); Bilirubin, Total 0.1 mg/dL (0.3-1.2); Calc. Creatinine Clearance 55 mL/min (70-130); Calcium 8.2 mg/dL (7.8-10.44); Carbon Dioxide 20 mmol/L (23-31); Chloride 113 mmol/L (98-107); Globulin 3.2 g/dL (2.4-3.5); Glucose 100 mg/dL (80-115); Potassium 3.6 mmol/L (3.5-5.1); Sodium 143 mmol/L (136-145)
[2025-02-13] MEDS: Vancomycin HCl 750 MG in Sodium Chloride 0.9% 250 ML 250 ML IVPB SCH (20:15)
[2025-02-14 08:13] LABS: #Basophils 0.05 10x3/uL (0.0-0.2); #Eosinophils 0.38 10x3/uL (0.0-0.7); #Monocytes 0.45 10x3/uL (0.11-0.59); #Neutrophils 3.15 10x3/uL (1.40-6.50); %Basophils 0.7 % (0.0-1.0); %Eosinophils 5.3 % (0.0-10.0); %Lymphocytes 43.9 % (21.0-51.0); %Monocytes 6.3 % (0.0-10.0); %Neutrophils 43.7 % (42.0-75.0); Hematocrit 35.9 % (42.0-52.0); Hemoglobin 10.9 g/dL (14.0-18.0); Mean Corpuscular Hemoglobin 24.1 pg (27.0-31.0); Mean Corpuscular Volume 79.2 fL (78.0-98.0); Platelet Count 275 10x3/uL (130-400); Red Blood Cell (RBC) Count 4.53 mill/uL (4.70-6.10); White Blood Cell (WBC) Count 7.20 10x3/uL (4.8-10.8)
[2025-02-14 08:29] LABS: ALT (SGPT) 17 U/L (Less than 45); AST (SGOT) 25 U/L (11-34); Albumin 3.2 g/dL (3.1-4.5); Alkaline Phosphatase 62 U/L (40-110); Anion Gap 15 mmol/L (10-20); BUN (Urea Nitrogen) 13 mg/dL (8.4-25.7); Bilirubin, Total 0.2 mg/dL (0.3-1.2); Calc. Creatinine Clearance 63 mL/min (70-130); Calcium 8.7 mg/dL (7.8-10.44); Carbon Dioxide 23 mmol/L (23-31); Chloride 111 mmol/L (98-107); Globulin 3.5 g/dL (2.4-3.5); Glucose 87 mg/dL (80-115); Potassium 3.5 mmol/L (3.5-5.1); Sodium 145 mmol/L (136-145)
[2025-02-14 08:31] LABS: Vancomycin, Random 15.5 ug/mL (See Comment)
[2025-02-14] MEDS: Sulfameth/Trimethoprim DS 800-160mg TAB PO SCH (08:54)
[2025-02-14 18:55] VITALS: BP 123/77; TEMP 98.4
== END 2025-02-14 22:34 | disposition home or self-care (01) | DRG 863 ==
LOC: ERS 23:57 → T4-B 02-10 04:20
PROVIDERS: ADMIT Family Medicine; ATTEND Family Medicine
PROC: 0H9KX0Z Drainage of Right Lower Leg Skin with Drainage Device, External Approach (ICD-10-PCS; principal; 2025-02-11)
DX: T81.41XA Infection following a procedure, superficial incisional surgical site, initial encounter (principal); L03.115 Cellulitis of right lower limb; I73.9 Peripheral vascular disease, unspecified; E87.6 Hypokalemia; D50.9 Iron deficiency anemia, unspecified; E78.5 Hyperlipidemia, unspecified; I10 Essential (primary) hypertension; Z91.013 Allergy to seafood; Z79.82 Long term (current) use of aspirin; Z79.899 Other long term (current) drug therapy; I25.2 Old myocardial infarction
CPT/HCPCS: 36415; 80053; 80202; 83605; 85025; 87040; 87070; 87077; 87081; 87186; 87205; 87324; 87449; 96365; 96366; 96367; J1100; J1171; J2405; J2543; J2704; J3010; J3373; J3375; J7030; J7050; Q9967